=== PATIENT | male | born 2005 | race Two or more races ===

== ENCOUNTER 2023-07-21 14:22 | Emergency (ER) | payer MEDICAID, OTHER ==
[~2023-07-21] VITALS: Ht 182.9 cm; Wt 89.0 kg
[2023-07-21] MEDS ORDERED: IBUPROFEN 800 MG TAB PO ONE (17:30)
[2023-07-21 17:31] VITALS: BP 148/86; PULSE 100; RESP 18; TEMP 98.8; O2SAT 99
[2023-07-21] MEDS ORDERED: ACE3T PO (17:37)
[2023-07-21] MEDS ORDERED: IBUP-1455 PO (17:37)
== END 2023-07-21 17:51 | disposition home or self-care (01) ==
LOC: ER 14:22
DX: S97.82XA Crushing injury of left foot, initial encounter (principal); W23.0XXA Caught, crushed, jammed, or pinched between moving objects, initial encounter; Y93.89 Activity, other specified; Y92.89 Other specified places as the place of occurrence of the external cause; Y99.8 Other external cause status
CPT/HCPCS: 73630

== ENCOUNTER 2025-03-23 21:15 | Inpatient (IN) | payer MEDICAID, OTHER ==
[~2025-03-23] VITALS: Ht 185.4 cm; Wt 104.0 kg
[~2025-03-23 21:15] MED LIST: ACE3T PO; IBUP-1455 PO
[2025-03-23] MEDS ORDERED: MORPHINE SULFATE 4 MG/ML SYR/VIAL IV ONE (21:30)
[2025-03-23] MEDS: SODIUM CHLORIDE 0.9% 1,000 ML IV ONE ×2 (21:30→22:01)
[2025-03-23] MEDS ORDERED: ONDANSETRON HCL 4 MG/2 ML VIAL IV ONE (21:30)
--- NOTE | 2025-03-23 21:32 | ED.PDOC ---
HPI Comments A 20 year-old male presents to the ED with a chief complaint of substernal chest pain with associated SOB as of X1 hour ago. Patient states chest patient is constant, radiating to left arm, with no associated alleviating or persist factors. Patient denies cough, N/V, dizziness, LOC, or migraine at this time. This never happened before. Patient takes testosterone and had an energy drink this morning patient presented with initially what looked like SVT rates between 100-200 Past Medical history: Denies any Past Surgical history: Denies any Medications: Testosterone injections every two weeks Social History: Denies smoking, ETOH, and drug use. Allergies: NKA HPI: Poor Historian. REVIEW OF SYSTEMS: CONSTITUTIONAL: Denies acute: fever, diaphoresis, chills, HEAD: Denies acute: headache, photophobia Eyes: Denies acute: Double vision, vision loss, eye pain, eye discharge. EARS: Denies acute: tinnitus, hearing loss, ear discharge, ear pain, THROAT: Denies acute: sore throat, swelling, difficulty swallowing , pain with swallowing, change in voice. NECK: Denies acute: neck pain, neck swelling, stiff neck. HEART: Denies acute : LUNGS: Denies acute: SOB, wheezing, cough, hemoptysis ABDOMEN: Denies acute: abdominal pain, Nausea, Vomiting, diarrhea, melena , hematemesis, hematochezia SKIN: Denies acute: rash, redness, lesions, itchiness. EXTREMITIES: Denies acute: calf pain, tingling, weakness, denies pain in extremity. Denies acute: Low back pain. Neuro: Denies acute: focal neurological deficit, motor or sensory focal neurological deficit, tremors, seizure like activity, confusion, dizziness, change in mental status, loss of bowel or bladder function, cauda equina like symptoms. : Denies acute: dysuria, hematuria, flank pain, increase in urinary frequency. PSYCH: Denies acute: hallucination, suicidal ideation, homicidal ideation. PHYSICAL EXAM: General: ----[id number]----acute distress, awake and alert. Head: normocephalic, atraumatic. Neck: supple, trachea is midline, no swelling. Throat: Normal phonation. Eyes:, no erythema, no purulent discharge, no proptosis, no icterus. Heart: regular tachycardia, no significant murmur appreciated. Lungs: no apparent respiratory distress, Able to speak in full sentences. No wheezing, no rhonchi, no crackles. No stridors Clear to auscultation bilaterally. Abdomen: non tender to palpation, non distended, soft, no guarding, no rebound, + bowel sounds. Neuro: Awake, Alert, oriented to name, self, situation, follows commands GCS=15. Speech is normal. Skin: no petechia, no purpura, no cyanosis, non-pale, not jaundice. Lower extremities: --no - Pitting edema no deformity, no focal swelling, no calf TTP. Makes eye contact. moves all four extremities. Face: no apparent facial droop. Ambulating in the ED independently. ED COURSE: DISCLAIMER: This medical document was created using an electronic medical record system with voice recognition software and computerized dictation system. Although this document has been carefully reviewed, there might still be some phonetic and typographical errors. Occasional wrong-word or "sound-alike" substitutions may have occurred due to the inherent limitations of voice recognition software. These areas are purely typographical due to imperfections of the software programs and do not reflect any compromise in the patient's medical care. Please read the chart carefully and recognize, using context, where these substitutions have occurred. Chief Complaint: Chest Pain Time Seen by MD: 21:29 Primary Care Provider: BRANDO Crenshaw Notes: Medications, Allergies Allergies: Coded Allergies: NO KNOWN ALLERGIES (Unverified , 03/16/10) Home Meds Active Scripts Ibuprofen Micronized (Ibuprofen) 800 Mg Tab, 800 MG PO Q8HP PRN, #30 TAB Prov:GUSTAVO SIM PAC 07/21/23 Acetaminophen W/ Codeine (Tylenol W/Cod #3) 1 Tab Tb, 1 TAB PO Q8HP PRN, #20 TAB Prov:GUSTAVO SIM PAC 07/21/23 Information Source: Patient Mode of Arrival: Ambulatory Severity: Moderate Timing: Hours Duration: Since onset Location: Substernal Radiation: Arm (L) Associated Signs and Symptoms: SOB, Other (Chest Pain ) Past Medical History PAST MEDICAL HISTORY: Denies Surgical History: Denies all surgeries Family History Family History: Unknown Social History Smoker: Non-Smoker Alcohol: Denies ETOH Use Drugs: Denies Drug Use Lives In: Home EKG EKG : Pulse Rate (adult): 179 Cardiac Rhythm: Afib Was a procedure done? Was a procedure done?: No CP Differential Dx Differential Diagnosis: A-fib, A-Flutter, Anxiety / Panic Attack, Atrial Dysrhythmia, Hyperthyroidism, Hypoxia, MAT, TX, PAC's, PSVT, Pulmonary Embolus, PVC's, Renal Failure, Sinus Tachycardia, Torsades De Pointes, Ventricular Dysrhythmia, V-Fib, V-Tach, WPW Differential Diagnosis: HTN Essential Differential Diagnosis: Chest Wall Pain X-Ray, Labs, Meds, VS Vital Signs Date Time Temp Pulse Resp B/P (MAP) Pulse Ox O2 Delivery O2 Flow Rate FiO2 03/23/25 23:00 97.9 112 20 126/70 (88) 100 97.9 03/23/25 22:16 109 03/23/25 22:00 97.9 118 20 143/79 (100) 100 97.9 03/23/25 21:40 179 03/23/25 21:30 Nasal Cannula* 2 28 03/23/25 21:30 97.9 128 20 155/92 (113) 100 97.9 03/23/25 21:24 98.2 199 28 155/92 (113) 100 98.2 03/23/25 21:17 179 Lab Test 03/23/25 22:42 03/23/25 22:24 03/23/25 21:48 03/23/25 21:24 Range/Units Free Thyroxine (T4) Calculated 1.18 0.89-1.76 ng/dL Troponin I High Sensitivity 9 10 </=54 ng/L Plasma/Serum Blood Alcohol < 3.0 <10 mg/dL Urine Color Colorless Yellow Urine Clarity Clear Clear Urine pH 7.5 5.0-9.0 Urine Specific [place] 1.002 1.001-1.035 Urine Protein Negative Negative Urine Ketones Negative Negative Urine Blood Negative Negative /uL Urine Nitrite Negative Negative Urine Bilirubin Negative Negative Urine Urobilinogen Normal Negative mg/dL Urine Leukocyte Esterase Negative Negative /uL Urine RBC <1 0 - 3 /hpf Urine Microscopic WBC 0-3 /HPF Urine Squamous Epithelial Cells None seen <5 /hpf Urine Bacteria None seen None Seen /hpf Urine Glucose Normal Normal mg/dL Urine Opiates Screen Neg NEGATIVE Urine Fentanyl Screen Neg NEGATIVE Urine Barbiturates Screen Neg NEGATIVE Urine Phencyclidine Screen Neg NEGATIVE Urine Amphetamines Screen Neg NEGATIVE Urine Benzodiazepines Screen Neg NEGATIVE Urine Cocaine Screen Neg NEGATIVE Urine Cannabinoids Screen Neg NEGATIVE White Blood Count 11.8 H 4.4-10.8 10^3/uL Red Blood Count 6.33 H 4.5-5.90 10^6/uL Hemoglobin 18.0 H 13.5-17.5 g/dL Hematocrit 53.8 H 41.0-53.0 % Mean Corpuscular Volume 84.9 80.0-100.0 fL Mean Corpuscular Hemoglobin 28.5 28.0-32.0 pg Mean Corpuscular Hemoglobin Concent 33.5 32.0-36.0 g/dL Red Cell Distribution Width 15.4 H 11.8-14.3 % Platelet Count 298 140-450 10^3/uL Mean Platelet Volume 8.3 6.9-10.8 fL Neutrophils (%) (Auto) 51.5 37.0-80.0 % Lymphocytes (%) (Auto) 32.6 10.0-50.0 % Monocytes (%) (Auto) 10.9 0.0-12.0 % Eosinophils (%) (Auto) 4.3 0.0-7.0 % Basophils (%) (Auto) 0.7 0.0-2.0 % Neutrophils # (Auto) 6.1 1.6-8.6 10 ^3/uL Lymphocytes # (Auto) 3.8 0.4-5.4 10 ^3/uL Monocytes # (Auto) 1.3 0-1.3 10 ^3/uL Eosinophils # (Auto) 0.5 0-0.8 10 ^3/uL Basophils # (Auto) 0.1 0-0.2 10 ^3/uL Nucleated Red Blood Cells 0.2 % Sodium Level 142 136-145 mmol/L Potassium Level 3.5 3.5-5.1 mmol/L Chloride Level 104 98-107 mmol/L Carbon Dioxide Level 25 20-31 mmol/L Anion Gap 13 5-15 Blood Urea Nitrogen 7 L 9-23 mg/dL Creatinine 1.23 0.700-1.30 mg/dL Glomerular Filtration Rate Calc 85 >90 mL/min BUN/Creatinine Ratio 5.7 L 10.0-20.0 Serum Glucose 105 74-106 mg/dL Calcium Level 10.8 H 8.7-10.4 mg/dL Magnesium Level 2.6 1.6-2.6 mg/dL Total Bilirubin 0.6 0.2-1.0 mg/dL Aspartate Amino Transferase (AST) 48 H 13-40 U/L Alanine Aminotransferase (ALT) 87 H 7-40 U/L Alkaline Phosphatase 44 L 46-116 U/L B-Type Natriuretic Peptide < 0 0-100 pg/mL Total Protein 7.9 5.7-8.2 g/dL Albumin 5.4 H 3.2-4.8 g/dL Thyroid Stimulating Hormone (TSH) 3.15 0.55-4.78 uIU/mL Current Medications Medications (Trade) Dose Ordered Sig/Cecile Route Start Time Stop Time Status Last Admin Sodium Chloride 1,000 ml @ 1,000 mls/hr Q1H ONCE IV 03/23/25 21:30 03/23/25 22:29 DC 03/23/25 21:30 Diltiazem HCl (Cardizem Injection) 5 mg ONCE ONCE IV 03/23/25 22:30 03/23/25 22:31 DC 03/23/25 22:48 Sodium Chloride 1,000 ml @ 1,000 mls/hr Q1H ONCE IV 03/23/25 22:30 03/23/25 23:29 DC 03/23/25 22:01 Diltiazem HCl 125 ml @ 5 mls/hr Q24H ONCE IV 03/23/25 23:00 03/24/25 10:59 DC 03/23/25 23:19 Time of 1ST Reevaluation: 22:24 (Heart rate significantly improved. Repeat EKGs shows atrial fibrillation with RVR.) Reevaluation 1ST: Improved Patient Education/Counseling: Diagnosis, Treatment Family Education/Counseling: Other Comments MDM: patient presented with the above HPI.--palpitations----workup was initiated. patient was found with the above mentioned diagnosis. Patient was evaluated immediately in triage. the following medications were ordered: please refer to order lists of meds and tests obtained by myself Dr. Zamudio. Patient ED course and VS have been stabilized. Patient has been reassessed in the ED and remained in a stable condition. Pertinent incidental findings were discussed with the patient and/or family. Patient/family voices understanding and is agreeable with plan. Patient has been observed in the ED adequate length of time to insure improvement/stability. Escalation of care considered: Consideration of escalation to observation or admission Was often maneuver was attempted multiple times. Patient was given 3 L normal saline bolus which improved his vital signs significantly. Patient takes testosterone without any particular need or measurement of the levels. Patient also takes energy drinks. Heart rate improved significantly after fluid hydration however new rhythm EKGs shows atrial fibrillation with RVR. Diltiazem bolus was initiated. Patient was ADMITTED to the medicine team for further evaluation and treatment of their presentation. All the reports of any imaging studies that were ordered by myself were reviewed by myself. SEPSIS Sepsis Screen Date sepsis recognized/suspect: Mar 23, 2025 Time Sepsis recognized/suspect: 2116 Recent Procedure: No On Antibiotic Therapy: No Respiratory Rate >20: Yes Heart Rate >90: Yes Temp<36 C (96.8 F) or >38.3 C: No SBP <90 or MAP <65 mmHG: No New Acute Mental Status Change: No Is the patient on CPAP, BIPAP,: No Physician Orders Greeter (03/23/25 ) Chest Portable (03/23/25 21:23) Electrocardigram (03/23/25 22:23) Aspirin Tablet (03/24/25 10:00) Metoprolol Tartrate Tablet (Lopressor Ta (03/24/25 10:00) Clonidine Hcl Tablet (Catapres Tablet) (03/23/25 22:45) Allergies (03/23/25 22:33) Code Status (03/23/25 22:33) Sodium Chloride Lock (Saline Lock Ns) (03/24/25 06:00) Oxygen Per Hour (03/23/25 22:33) Hydrocodone-Acet 5/325mg Tab ([place] 5/32 (03/23/25 22:45) Ondansetron Hcl (Zofran) (03/23/25 22:45) Docusate Sodium Capsule (Colace Capsule) (03/23/25 22:45) Cardiac Diet-2gna,Lofat,Lochol (03/24/25 Breakfast) Condition: Serious (03/23/25 22:33) Acetaminophen Tablet (Tylenol Tablet) (03/23/25 22:45) Bedrest With Bathroom Privileg (03/23/25 22:33) Sequential Compression Device (03/23/25 ) Nitroglycerin Sublingual (Ntrostat Subli (03/23/25 23:00) Morphine Sulfate Injection (03/23/25 23:00) Stat Ekg For Chest Pain (03/23/25 23:00) Notify Md Of Changes From Base (03/23/25 23:00) Silk Screen Printer For 24 Hours (03/23/25 23:00) Emergency Dysrhythmia Protocol (03/23/25 23:00) Rhythm Strips Once Every Shift (03/23/25 23:00) Oxygen By Nasal Cannula (03/23/25 23:00) Vital Signs Date Time Temp Pulse Resp B/P (MAP) Pulse Ox O2 Delivery O2 Flow Rate FiO2 03/23/25 23:00 97.9 112 20 126/70 (88) 100 97.9 03/23/25 22:16 109 03/23/25 22:00 97.9 118 20 143/79 (100) 100 97.9 03/23/25 21:40 179 03/23/25 21:30 Nasal Cannula* 2 28 03/23/25 21:30 97.9 128 20 155/92 (113) 100 97.9 03/23/25 21:24 98.2 199 28 155/92 (113) 100 98.2 03/23/25 21:17 179 Laboratory Tests Test 03/23/25 21:24 White Blood Count 11.8 10^3/uL (4.4-10.8) H Departure 1 Departure Time of Disposition: 22:13 Impression: Primary Impression: Atrial fibrillation with RVR Additional Impression: Dehydration Disposition: 09 ADMITTED INPATIENT Admit to: Tele Condition: Guarded Discharged With: Self Critical Care Note Critical Care Time?: Yes (1 hr-critical care time only) Heart Score Heart Score: Heart Score Response (Comments) Value History Moderate Suspicious [address]-Deviation 2 Age <45 0 Risk Factors No known risk factors 0 Troponin Normal limit 0 Total 3 I personally scribed for DOMI ZAMUDIO DO ([email or web address]) on 03/23/25 at 21:32. Electronically submitted by Asia Bobby ([facility]). I personally scribed for DOMI ZAMUDIO DO ([facility] on 03/23/25 at 21:35. Electronically submitted by Asia Bobby ([employer]). I personally scribed for DOMI ZAMUDIO DO ([facility] on 03/23/25 at 21:37. Electronically submitted by Asia Bobby ([employer]). I personally scribed for DOMI ZAMUDIO DO ([facility] on 03/23/25 at 21:40. Electronically submitted by Asia Bobby ([employer]). I personally scribed for DOMI ZAMUDIO DO ([facility] on 03/23/25 at 21:51. Electronically submitted by Asia Bobby ([employer]). DOMI ZAMUDIO DO Mar 23, 2025 21:32
[2025-03-23 21:42] LABS: Hematocrit 53.8 % (41.0-53.0); Hemoglobin 18.0 g/dL (13.5-17.5); Mean Corpuscular Hemoglobin 28.5 pg (28.0-32.0); Mean Corpuscular Volume 84.9 fL (80.0-100.0); Nucleated Red Blood Cells % 0.2 %
[2025-03-23 21:49] LABS: Anion Gap 13 (5-15); BUN/Creatinine Ratio 5.7 (10.0-20.0); Bilirubin, Total 0.6 mg/dL (0.2-1.0); Carbon Dioxide 25 mmol/L (20-31); Chloride 104 mmol/L (98-107); Glucose 105 mg/dL (74-106); Magnesium 2.6 mg/dL (1.6-2.6); Potassium 3.5 mmol/L (3.5-5.1); Sodium 142 mmol/L (136-145); Total Protein 7.9 g/dL (5.7-8.2)
--- NOTE | 2025-03-23 22:04 | DVH ---
CHEST RADIOGRAPH Indication: tachy Technique: Single frontal view of the chest was obtained COMPARISON: None FINDINGS: Lines and Tubes: None Lungs: Clear Pleura: No effusion. No pneumothorax. Cardiomediastinal contours: Unremarkable IMPRESSION: No abnormality demonstrated.
[2025-03-23 22:13] LABS: Alanine Aminotransferase 87 U/L (7-40); Albumin 5.4 g/dL (3.2-4.8); Alkaline Phosphatase 44 U/L (46-116); Blood Urea Nitrogen 7 mg/dL (9-23); Calcium 10.8 mg/dL (8.7-10.4)
[2025-03-23] MEDS ORDERED: HYDROcodone-ACET 5/325MG TAB PO PRN (22:45)
[2025-03-23] MEDS ORDERED: ACETAMINOPHEN 325 MG TAB PO PRN (22:45)
[2025-03-23] MEDS ORDERED: DOCUSATE SOD 100 MG CAP PO PRN (22:45)
[2025-03-23] MEDS ORDERED: ONDANSETRON HCL 4 MG/2 ML VIAL IV PRN (22:45)
[2025-03-23] MEDS: dilTIAZem 25 MG/5 ML VIAL IV ONE (22:48)
[2025-03-23] MEDS ORDERED: MORPHINE SULFATE INJ 2 MG/ml SYRG IV PRN (23:00)
[2025-03-23] MEDS ORDERED: NITROGLYCERIN 0.4 MG SL TAB SL PRN (23:00)
--- NOTE | 2025-03-23 23:06 | DVHHP2 ---
History of Present Illness Reason for Visit: Atrial fibrillation with RVR History of Present Illness The patient is a 20-year-old male who denies past medical history presented to [facility] ED with complaint of chest pain associated with shortness of breaths. Patient reports he has been experiencing substernal chest pain, radiating to his left arm, constant, rating 7/10 numeric scale, palpitations, getting worse that prompted this visit. Patient states he is on testosterone injection every two weeks. Patient was seen and evaluated in the ED with AFib with RVR heart rate in the 180s, temperature 97.9 F, O2 saturation 99% on oxygen, blood pressure 155/92. Laboratory data shows WBC 11.8, hemoglobin 18.0, hematocrit 53.8, platelets 298, sodium 142, potassium 3.5, BUN 7, creatinine 1.23, glucose 105, calcium 10.8, albumin 5.4, troponin 10, TSH 3.15, AST 48, ALT 87. Chest x-ray show no abnormality demonstrated. Patient was started on Cardizem drip, morphine sulfate 4 mg IV x1, please see medication orders section in the computer. On my assessment, patient denied chest pain at this moment, no headache, no dizziness, no diaphoresis, currently on oxygen, no nausea, no vomiting, no fever, no chills. Patient was admitted for further evaluation and medical management. Past Medical History Denies past medical history Past Surgical History Denies all surgeries Family History Patient reports father in this hospital at the age of 56 from heart attack, mother suffer from heart attack. Past Social History The patient lives at home, denies smoking, alcohol or illicit drugs abuse. Review of Systems Constitutional: No: Fever, Chills, Sweats, Weakness, Malaise, Other Eyes: No: Pain, Vision change, Conjunctivae inflammation, Eyelid inflammation, Other, Redness ENT: No: Ear pain, Ear discharge, Nose pain, Nose discharge, Nose congestion, Mouth pain, Mouth swelling, Throat pain, Throat swelling, Other Respiratory: Shortness of breath, Other (SOB at rest); No: Cough, Dry, SOB with excertion, Wheezing, Hemoptysis, Pleuritic Pain, Sputum, Wheezing Cardiovascular: Chest Pain, Palpitations; No: Orthopnea, Paroxysmal Noc. Dyspnea, Edema, Lt Headedness, Other Gastrointestinal: No: Nausea, Vomiting, Abdominal Pain, Diarrhea, Constipation, Melena, Hematochezia, Other Genitourinary: No Dysuria, No Frequency, No Incontinence, No Hematuria, No Retention, No Other Musculoskeletal: No: other, neck pain, shoulder pain, arm pain, back pain, hand pain, leg pain, foot pain Skin: No: Rash, Lesions, Jaundice, Bruising, Other Neurological: No: Weakness, Numbness, Incoordination, Change in speech, Confusion, Seizures, Other Allergies: Coded Allergies: NO KNOWN ALLERGIES (Unverified , 03/16/10) Medications Current Medications Medications Dose Ordered Sig/Cecile Route Start Time Stop Time Status Last Admin Dose Admin Aspirin 81 mg DAILY PO 03/24/25 10:00 Metoprolol Tartrate 25 mg BID PO 03/24/25 10:00 Clonidine HCl 0.1 mg Q4HP PRN PO 03/23/25 22:45 Sodium Chloride 10 ml Q8HR IV 03/24/25 06:00 Acetaminophen/ Hydrocodone Bitart 1 tab Q4HP PRN PO 03/23/25 22:45 Ondansetron HCl 4 mg Q4HP PRN IV 03/23/25 22:45 Docusate Sodium 100 mg BIDPRN PRN PO 03/23/25 22:45 Acetaminophen 650 mg Q6HP PRN PO 03/23/25 22:45 Nitroglycerin 0.4 mg Q5MINP PRN SL 03/23/25 23:00 Morphine Sulfate 2 mg Q30M PRN IV 03/23/25 23:00 UNV Exam Vital Signs Vital Signs Date Time Temp Pulse Resp B/P (MAP) Pulse Ox O2 Delivery O2 Flow Rate FiO2 03/23/25 22:16 109 03/23/25 21:30 97.9 20 155/92 (113) 100 97.9 General Appearance: Alert, Oriented X3, Cooperative, No acute distress HEENT: Atraumatic, PERRLA, EOMI, Mucous membr. moist/pink Respiratory: Clear to auscultation, Normal air movement Cardiovascular: Normal S1, Normal S2, No murmurs, Other (Irregular rate) Abdominal: Normal bowel sounds, Soft, No tenderness, No hepatospenomegaly, No masses Extremities: No clubbing, No cyanosis, No edema, Normal pulses, No tenderness/swelling Skin: No rashes, No breakdown, No significant lesion Neuro: Normal gait, Normal speech, Strength at 5/5 X4 ext, Normal tone, Sensation intact, Cranial nerves 3-12 NL, Reflexes 2+ Psych/Mental Status: Mental status NL, Mood NL Labs/Xrays Labs Test 03/23/25 22:42 03/23/25 22:24 03/23/25 21:24 Range/Units Troponin I High Sensitivity 9 </=54 ng/L Plasma/Serum Blood Alcohol < 3.0 <10 mg/dL White Blood Count 11.8 H 4.4-10.8 10^3/uL Red Blood Count 6.33 H 4.5-5.90 10^6/uL Hemoglobin 18.0 H 13.5-17.5 g/dL Hematocrit 53.8 H 41.0-53.0 % Mean Corpuscular Volume 84.9 80.0-100.0 fL Mean Corpuscular Hemoglobin 28.5 28.0-32.0 pg Mean Corpuscular Hemoglobin Concent 33.5 32.0-36.0 g/dL Red Cell Distribution Width 15.4 H 11.8-14.3 % Platelet Count 298 140-450 10^3/uL Mean Platelet Volume 8.3 6.9-10.8 fL Neutrophils (%) (Auto) 51.5 37.0-80.0 % Lymphocytes (%) (Auto) 32.6 10.0-50.0 % Monocytes (%) (Auto) 10.9 0.0-12.0 % Eosinophils (%) (Auto) 4.3 0.0-7.0 % Basophils (%) (Auto) 0.7 0.0-2.0 % Neutrophils # (Auto) 6.1 1.6-8.6 10 ^3/uL Lymphocytes # (Auto) 3.8 0.4-5.4 10 ^3/uL Monocytes # (Auto) 1.3 0-1.3 10 ^3/uL Eosinophils # (Auto) 0.5 0-0.8 10 ^3/uL Basophils # (Auto) 0.1 0-0.2 10 ^3/uL Nucleated Red Blood Cells 0.2 % Sodium Level 142 136-145 mmol/L Potassium Level 3.5 3.5-5.1 mmol/L Chloride Level 104 98-107 mmol/L Carbon Dioxide Level 25 20-31 mmol/L Anion Gap 13 5-15 Blood Urea Nitrogen 7 L 9-23 mg/dL Creatinine 1.23 0.700-1.30 mg/dL Glomerular Filtration Rate Calc 85 >90 mL/min BUN/Creatinine Ratio 5.7 L 10.0-20.0 Serum Glucose 105 74-106 mg/dL Calcium Level 10.8 H 8.7-10.4 mg/dL Magnesium Level 2.6 1.6-2.6 mg/dL Total Bilirubin 0.6 0.2-1.0 mg/dL Aspartate Amino Transferase (AST) 48 H 13-40 U/L Alanine Aminotransferase (ALT) 87 H 7-40 U/L Alkaline Phosphatase 44 L 46-116 U/L Total Protein 7.9 5.7-8.2 g/dL Albumin 5.4 H 3.2-4.8 g/dL Thyroid Stimulating Hormone (TSH) 3.15 0.55-4.78 uIU/mL PATIENT: ANSELMO PAREDES ACCT: [id number] UNIT: [id number] : 2005 LOC: ER ROOM / BED: / AGE / SEX: 20 / M ADM STATUS: REG ER SERVICE 22 ORDERING PHYSICIAN: DOMI ZAMUDIO DO PROCEDURE(s): CXRP - CHEST PORTABLE REASON: tachy ORDER NUMBER(s): [id number], ACCESSION NUMBER(s): [id number] CHEST RADIOGRAPH Indication: tachy Technique: Single frontal view of the chest was obtained COMPARISON: None FINDINGS: Lines and Tubes: None Lungs: Clear Pleura: No effusion. No pneumothorax. Cardiomediastinal contours: Unremarkable IMPRESSION: No abnormality demonstrated. SEPSIS Sepsis Screen Date sepsis recognized/suspect: Mar 23, 2025 Time Sepsis recognized/suspect: 2116 Recent Procedure: No On Antibiotic Therapy: No Respiratory Rate >20: Yes Heart Rate >90: Yes Temp<36 C (96.8 F) or >38.3 C: No SBP <90 or MAP <65 mmHG: No New Acute Mental Status Change: No Is the patient on CPAP, BIPAP,: No Physician Orders Urinalysis (03/23/25 21:19) Community Director (03/23/25 ) Urinalysis (03/23/25 21:23) Drug Screen (03/23/25 21:23) Chest Portable (03/23/25 21:23) Electrocardigram (03/23/25 21:23) Troponin-I Hs (03/24/25 00:23) Electrocardigram (03/23/25 22:23) Electrocardigram (03/24/25 00:23) B-Type Natriuretic Peptide (03/23/25 22:20) Sodium Chloride 0.9% (03/23/25 22:30) Aspirin Tablet (03/24/25 10:00) Metoprolol Tartrate Tablet (Lopressor Ta (03/24/25 10:00) Clonidine Hcl Tablet (Catapres Tablet) (03/23/25 22:45) Free T4 (Free Thyroxine) (03/23/25:33) Allergies (03/23/25:33) Code Status (03/23/25:33) Sodium Chloride Lock (Saline Lock Ns) (03/24/25 06:00) Oxygen Per Hour (03/23/25 22:33) Hydrocodone-Acet 5/325mg Tab ([place] 5/32 (03/23/25 22:45) Ondansetron Hcl (Zofran) (03/23/25 22:45) Docusate Sodium Capsule (Colace Capsule) (03/23/25 22:45) Complete Blood Count (03/24/25 04:00) Comprehensive Metabolic Panel (03/24/25 04:00) Cardiac Diet-2gna,Lofat,Lochol (03/24/25 Breakfast) Condition: Serious (03/23/25 22:33) Acetaminophen Tablet (Tylenol Tablet) (03/23/25 22:45) Bedrest With Bathroom Privileg (03/23/25 22:33) Sequential Compression Device (03/23/25 ) Diltiazem 125mg/125ml Bag Kit (Cardizem) (03/23/25 23:00) Nitroglycerin Sublingual (Ntrostat Subli (03/23/25 23:00) Morphine Sulfate Injection (03/23/25 23:00) Stat Ekg For Chest Pain (03/23/25 23:00) Notify Md Of Changes From Base (03/23/25 23:00) Sleeve Presser Operator For 24 Hours (03/23/25 23:00) Emergency Dysrhythmia Protocol (03/23/25 23:00) Rhythm Strips Once Every Shift (03/23/25 23:00) Oxygen By Nasal Cannula (03/23/25 23:00) * Cardiology Consult (03/23/25 23:05) Admit (03/23/25 23:05) Vital Signs Date Time Temp Pulse Resp B/P (MAP) Pulse Ox O2 Delivery O2 Flow Rate FiO2 03/23/25 22:16 109 03/23/25 21:40 179 03/23/25 21:30 97.9 128 20 155/92 (113) 100 97.9 03/23/25 21:24 98.2 199 28 155/92 (113) 100 98.2 03/23/25 21:17 179 Laboratory Tests Test 03/23/25 21:24 White Blood Count 11.8 10^3/uL (4.4-10.8) H Medications Medications Dose Ordered Sig/Cecile Route Start Time Stop Time Status Last Admin Dose Admin Diltiazem HCl 5 mg ONCE ONCE IV 03/23/25 22:30 03/23/25 22:31 DC 03/23/25 22:48 5 MG Sodium Chloride 1,000 ml @ 1,000 mls/hr Q1H ONCE IV 03/23/25 21:30 03/23/25 22:29 DC 03/23/25 21:30 1,000 MLS/HR Sodium Chloride 1,000 ml @ 1,000 mls/hr Q1H ONCE IV 03/23/25 22:30 03/23/25 23:29 03/23/25 22:01 1,000 MLS/HR Assessment/Plan Assessment/Plan Atrial fibrillation with RVR Acute chest pain Elevated liver enzymes Elevated TSH Leukocytosis, unspecified Plan 1. Admit to telemetry unit 2. Breathing treatment 3. Pain control management 4. IV antibiotic management 5. Management of fluids and electrolytes 6. Consultation for Cardiology 7. Diagnostic test chest x-ray 8. DVT prophylaxis-on aspirin 9. Repeat labs CBC, CMP in a.m. 10. Continue with current medical management 11. Treatment plan discussed with patient/brother and RN. Patient/brother verbalized understanding. Plan discussed with: Patient (/brother), Other (RN) My Orders Orders - MATTHIAS HENNING DNP Procedure Category Date Status Time Aspirin Tablet PHA 03/24/25 In Process 10:00 Metoprolol Tartrate PHA 03/24/25 In Process Tablet (Lopressor Ta 10:00 Clonidine Hcl Tablet PHA 03/23/25 In Process (Catapres Tablet) 22:45 Free T4 (Free LAB 03/23/25 In Process Thyroxine) 22:33 Allergies JESSICA 03/23/25 In Process 22:33 Code Status CODE 03/23/25 Transmitted 22:33 Sodium Chloride Lock PHA 03/24/25 In Process (Saline Lock Ns) 06:00 Oxygen Per Hour RT 03/23/25 Transmitted 22:33 Hydrocodone-Acet PHA 03/23/25 In Process 5/325mg Tab ([place] 22:45 Ondansetron Hcl PHA 03/23/25 In Process (Zofran) 22:45 Docusate Sodium PHA 03/23/25 In Process Capsule (Colace 22:45 Complete Blood Count LAB 03/24/25 Verified 04:00 Comprehensive LAB 03/24/25 Verified Metabolic Panel 04:00 Cardiac DIET 03/24/25 Transmitted Diet-2gna,Lofat,Lochol Breakfast Condition: Serious JESSICA 03/23/25 In Process 22:33 Acetaminophen Tablet PHA 03/23/25 In Process (Tylenol Tablet) 22:45 Bedrest With Bathroom JESSICA 03/23/25 In Process Privileg 22:33 Sequential JESSICA 03/23/25 In Process Compression Device Diltiazem 125mg/125ml PHA 03/23/25 In Process Bag Kit (Cardizem) 23:00 Nitroglycerin PHA 03/23/25 In Process Sublingual (Ntrostat 23:00 Morphine Sulfate PHA 03/23/25 Logged Injection 23:00 Stat Ekg For Chest JESSICA 03/23/25 In Process Pain 23:00 Notify Of Changes JESSICA 03/23/25 In Process From Base 23:00 Sleeve Presser Operator For [facility] 03/23/25 In Process 24 Hours 23:00 Emergency Dysrhythmia JESSICA 03/23/25 In Process Protocol 23:00 Rhythm Strips Once [facility] 03/23/25 In Process Every Shift 23:00 Oxygen By Nasal RT 03/23/25 Transmitted Cannula 23:00 * Cardiology Consult CONS 03/23/25 Verified 23:05 Admit ADMIT 03/23/25 Verified 23:05 Problem List: (1) Atrial fibrillation with RVR (2) Acute chest pain (3) Elevated liver enzymes (4) Elevated TSH (5) Leukocytosis, unspecified Date of Service: Mar 23, 2025 Billing Provider: MATTHIAS HENNING DNP Common Visit Codes: [id number] INP/OBS CARE (HIGH) MATTHIAS HENNING DNP Mar 23, 2025 23:06
[2025-03-23] MEDS: METOPROLOL TARTRATE 1MG/1ML-5ML VIAL IV ONE (23:10)
[2025-03-24 00:10] LABS: Urine Protein, UAD Negative (Negative)
[2025-03-24 00:23] LABS: Amphetamine Screen, Urine Neg (NEGATIVE); Barbiturate Scree,Urine Neg (NEGATIVE); Benzodiazephine Screen, Urine Neg (NEGATIVE); Cocaine Screen, Urine Neg (NEGATIVE); Opiate Scree,Urine Neg (NEGATIVE); Phencyclidine Screen, Urine Neg (NEGATIVE)
[2025-03-24 00:24] LABS: Cannabinoid Screen, Urine Neg (NEGATIVE)
--- NOTE | 2025-03-24 01:51 | ECG ---
[facility] Test Date: 2025-03-24 Test Time: 00:16:48 Pat Name: ANSELMO PAREDES Department: ED Room: 0223T Gender: M Embedder: gulshan : 2005 Requested By: DOMI ZAMUDIO Order Number: [id number] Reading MD: Chavez Dickinson Measurements Intervals [place] Rate: 122 P: 0 OK: 0 QRS: 99 QRSD: 90 T: -6 QT: 292 QTc: 416 Interpretive Statements Atrial fibrillation Lateral infarct, acute Electronically Signed On 03-28-2025 17:46:04 PDT by Chavez Dickinson Please click the below link to view image of tracing.
--- NOTE | 2025-03-24 01:51 | ECG ---
[facility] Test Date: 2025-03-23 Test Time: 22:16:36 Pat Name: ANSELMO PAREDES Department: ED Room: 0223T Gender: M Graphic Design Teacher: gulshan : 2005 Requested By: DOMI ZAMUDIO Order Number: [id number] Reading MD: Chavez Dickinson Measurements Intervals [place] Rate: 109 P: 0 VT: 0 QRS: 97 QRSD: 94 T: -10 QT: 312 QTc: 421 Interpretive Statements Atrial fibrillation Ventricular premature complex Borderline right axis deviation Nonspecific T abnormalities, inferior leads ST elevation, consider lateral injury Electronically Signed On 03-28-2025 17:45:58 PDT by Chavez Dickinson Please click the below link to view image of tracing.
[2025-03-24 04:23] LABS: Hematocrit 49.0 % (41.0-53.0); Hemoglobin 16.5 g/dL (13.5-17.5); Mean Corpuscular Hemoglobin 28.8 pg (28.0-32.0); Mean Corpuscular Volume 85.7 fL (80.0-100.0); Nucleated Red Blood Cells % 0.1 %
[2025-03-24 04:38] LABS: Albumin 4.6 g/dL (3.2-4.8); Anion Gap 6 (5-15); BUN/Creatinine Ratio 4.6 (10.0-20.0); Bilirubin, Total 0.8 mg/dL (0.2-1.0); Calcium 9.6 mg/dL (8.7-10.4); Carbon Dioxide 28 mmol/L (20-31); Glucose 90 mg/dL (74-106); Sodium 142 mmol/L (136-145); Total Protein 6.6 g/dL (5.7-8.2)
[2025-03-24 04:41] LABS: Alanine Aminotransferase 70 U/L (7-40); Alkaline Phosphatase 31 U/L (46-116); Blood Urea Nitrogen 5 mg/dL (9-23); Chloride 108 mmol/L (98-107); Potassium 5.5 mmol/L (3.5-5.1)
[2025-03-24] MEDS: SODIUM CHLOR 0.9% PF (SALINE LOCK) 10ML VIAL/SYR IV SCH (06:16)
[2025-03-24 07:35] VITALS: PULSE 87; RESP 20; O2SAT 98
[2025-03-24] MEDS: SODIUM ZIRCONIUM CYCL 10 GM PAK PO ONE (08:51)
[2025-03-24] MEDS: METOPROLOL TARTRATE 25 MG TAB PO SCH (09:58)
[2025-03-24] MEDS: ENOXAPARIN SOD 100 MG/1 ML SYRINGE SC SCH (10:32)
[2025-03-24 11:13] LABS: Triglycerides 100 mg/dL (< 150)
--- NOTE | 2025-03-24 11:13 | DVHINCON2 ---
Date Seen: Mar 24, 2025 Referring Physician SURY Gonzalez Reason for Consultation AFib with RVR History of Present Illness 20-year-old male with no significant past medical history presents to the emergency department with a chief complaint of shortness of breath. The patient reports that yesterday while lying down, he experienced sudden onset palpitations lasting approximately 1 hour, which prompted him to seek emergency care. He endorses a similar episode about a month ago, which resolved spontaneously within a few minutes. Upon further questioning, the patient admits to self administering testosterone injection obtained from a store receiver over the past three months for gym-related purposes. In the emergency department, the patient was found to be in atrial fibrillation with rapid ventricular response at a rate in the 180s. He was started on Cardizem drip, which successfully controlled his heart rate. On assessment, he remains in atrial fibrillation with a controlled ventricular rate in the 80s Past Medical History Denies Past Surgical History Denies Family History Reviewed, non-contributory to the management of this case. Social History The patient lives at home, denies smoking, alcohol or illicit drugs abuse. Allergies: Coded Allergies: NO KNOWN ALLERGIES (Unverified , 03/16/10) Home Meds Active Scripts Ibuprofen Micronized (Ibuprofen) 800 Mg Tab, 800 MG PO Q8HP PRN, #30 TAB Prov:GUSTAVO SIM PAC 07/21/23 Acetaminophen W/ Codeine (Tylenol W/Cod #3) 1 Tab Tb, 1 TAB PO Q8HP PRN, #20 TAB Prov:GUSTAVO SIM PAC 07/21/23 Current Medications Current Medications Medications (Trade) Dose Ordered Sig/Cecile Route PRN Reason Start Time Stop Time Status Last Admin Aspirin 81 mg DAILY PO 03/24/25 10:00 03/24/25 09:57 Metoprolol Tartrate (Lopressor Tablet) 25 mg BID PO 03/24/25 10:00 03/24/25 09:58 Clonidine HCl (Catapres Tablet) 0.1 mg Q4HP PRN PO SBP>150 03/23/25 22:45 Sodium Chloride (Saline Lock Ns) 10 ml Q8HR IV 03/24/25 06:00 03/24/25 06:16 Acetaminophen/ Hydrocodone Bitart ([place] 5/325MG Tab) 1 tab Q4HP PRN PO MODERATE PAIN (4-6 PAIN SCALE) 03/23/25 22:45 Ondansetron HCl (Zofran) 4 mg Q4HP PRN IV NAUSEA / VOMITING 03/23/25 22:45 Docusate Sodium (Colace Capsule) 100 mg BIDPRN PRN PO FOR CONSTIPATION 03/23/25 22:45 Acetaminophen (Tylenol Tablet) 650 mg Q6HP PRN PO PAIN SCALE 1-3 OR TEMP>100.4 03/23/25 22:45 Nitroglycerin (Ntrostat Sublingual) 0.4 mg Q5MINP PRN SL FOR CHEST PAIN 03/23/25 23:00 Morphine Sulfate 2 mg Q30M PRN IV FOR CHEST PAIN 03/23/25 23:00 Enoxaparin Sodium (Lovenox) 100 mg Q12HR SC 03/24/25 10:00 03/24/25 10:32 Review of Systems Constitutional: No symptom reported Ears, Nose, & Throat: No symptom reported Eyes: No symptom reported Neurological: No symptoms reported Pulmonary/Respiratory: No symptom reported Cardiovascular: Positive for palpitations and shortness of breath. Denies chest pain or syncope Gastrointestinal: No symptom reported Genitourinary: No symptom reported Musculoskeletal: No symptom reported Skin: No symptom reported Psychiatric: No symptom reported Endocrine: No symptom reported Hematologic/Lymphatic: No symptom reported Vital Signs Vital Signs Date Time Temp Pulse Resp B/P (MAP) Pulse Ox O2 Delivery O2 Flow Rate FiO2 03/24/25 10:41 87 137/75 03/24/25 09:45 18 99 03/24/25 07:35 Nasal Cannula* 1 24 03/24/25 07:30 97.1 97.1 Physical Exam INITIAL VITAL SIGNS: Reviewed by me GENERAL: Alert and interactive. No acute distress. HEAD: Head is normocephalic and atraumatic. EYES: EOMI, PERRL. No scleral icterus. No conjunctival injection. ENT: Moist mucous membranes. NECK: Supple, No masses, Full range of motion. RESPIRATORY: No tachypnea. Clear breath sounds bilaterally. No wheezing, rales, rhonchi. CV: Irregularly irregular rhythm, no murmurs, rubs or gallops. Rate controlled on re-evaluation GI/: Active bowel sounds, soft, nondistended, nontender. No guarding. No rebound. No masses. No CVA tenderness. INTEGUMENTARY: Warm and dry. No obvious rashes. NEUROLOGIC: Alert and oriented. Face is symmetric. Speech is normal. Moves all extremities equally. Labs/Diagnostic Data Labs Test 03/24/25 03:20 03/24/25 00:11 03/23/25 22:42 03/23/25 22:24 Range/Units White Blood Count 13.8 H 4.4-10.8 10^3/uL Red Blood Count 5.72 4.5-5.90 10^6/uL Hemoglobin 16.5 13.5-17.5 g/dL Hematocrit 49.0 41.0-53.0 % Mean Corpuscular Volume 85.7 80.0-100.0 fL Mean Corpuscular Hemoglobin 28.8 28.0-32.0 pg Mean Corpuscular Hemoglobin Concent 33.6 32.0-36.0 g/dL Red Cell Distribution Width 15.2 H 11.8-14.3 % Platelet Count 259 140-450 10^3/uL Mean Platelet Volume 8.3 6.9-10.8 fL Neutrophils (%) (Auto) 67.3 37.0-80.0 % Lymphocytes (%) (Auto) 21.3 10.0-50.0 % Monocytes (%) (Auto) 8.5 0.0-12.0 % Eosinophils (%) (Auto) 2.6 0.0-7.0 % Basophils (%) (Auto) 0.3 0.0-2.0 % Neutrophils # (Auto) 9.3 H 1.6-8.6 10 ^3/uL Lymphocytes # (Auto) 2.9 0.4-5.4 10 ^3/uL Monocytes # (Auto) 1.2 0-1.3 10 ^3/uL Eosinophils # (Auto) 0.4 0-0.8 10 ^3/uL Basophils # (Auto) 0 0-0.2 10 ^3/uL Nucleated Red Blood Cells 0.1 % Sodium Level 142 136-145 mmol/L Potassium Level 5.5 #H 3.5-5.1 mmol/L Chloride Level 108 H 98-107 mmol/L Carbon Dioxide Level 28 20-31 mmol/L Anion Gap 6 5-15 Blood Urea Nitrogen 5 L 9-23 mg/dL Creatinine 1.08 0.700-1.30 mg/dL Glomerular Filtration Rate Calc 100 >90 mL/min BUN/Creatinine Ratio 4.6 L 10.0-20.0 Serum Glucose 90 74-106 mg/dL Calcium Level 9.6 8.7-10.4 mg/dL Total Bilirubin 0.8 0.2-1.0 mg/dL Aspartate Amino Transferase (AST) 35 13-40 U/L Alanine Aminotransferase (ALT) 70 H 7-40 U/L Alkaline Phosphatase 31 L 46-116 U/L Total Protein 6.6 5.7-8.2 g/dL Albumin 4.6 3.2-4.8 g/dL Troponin I High Sensitivity 11 </=54 ng/L Free Thyroxine (T4) Calculated 1.18 0.89-1.76 ng/dL Plasma/Serum Blood Alcohol < 3.0 <10 mg/dL Test 03/23/25 21:48 03/23/25 21:24 Range/Units Urine Color Colorless Yellow Urine Clarity Clear Clear Urine pH 7.5 5.0-9.0 Urine Specific [place] 1.002 1.001-1.035 Urine Protein Negative Negative Urine Ketones Negative Negative Urine Blood Negative Negative /uL Urine Nitrite Negative Negative Urine Bilirubin Negative Negative Urine Urobilinogen Normal Negative mg/dL Urine Leukocyte Esterase Negative Negative /uL Urine RBC <1 0 - 3 /hpf Urine Microscopic WBC 0-3 /HPF Urine Squamous Epithelial Cells None seen <5 /hpf Urine Bacteria None seen None Seen /hpf Urine Glucose Normal Normal mg/dL Urine Opiates Screen Neg NEGATIVE Urine Fentanyl Screen Neg NEGATIVE Urine Barbiturates Screen Neg NEGATIVE Urine Phencyclidine Screen Neg NEGATIVE Urine Amphetamines Screen Neg NEGATIVE Urine Benzodiazepines Screen Neg NEGATIVE Urine Cocaine Screen Neg NEGATIVE Urine Cannabinoids Screen Neg NEGATIVE Magnesium Level 2.6 1.6-2.6 mg/dL B-Type Natriuretic Peptide < 0 0-100 pg/mL Thyroid Stimulating Hormone (TSH) 3.15 0.55-4.78 uIU/mL PROCEDURE(s): CXRP - CHEST PORTABLE REASON: tachy ORDER NUMBER(s): [id number], ACCESSION NUMBER(s): [id number] CHEST RADIOGRAPH Indication: tachy Technique: Single frontal view of the chest was obtained COMPARISON: None FINDINGS: Lines and Tubes: None Lungs: Clear Pleura: No effusion. No pneumothorax. Cardiomediastinal contours: Unremarkable IMPRESSION: No abnormality demonstrated. Assessment * New onset atrial fibrillation with rapid ventricular response, now rate controlled with diltiazem. Likely secondary to exogenous anabolic steroids testosterone use which has been associated with arrhythmogenic effects including atrial fibrillation. * Hyperkalemia, resolved * Dyslipidemia, mild * Obesity * Rule out pericarditis Plan/Recommendation We will continue with the following plan/recommendations ( ): New onset Atrial fibrillation with RVR, now rate is controlled Rule out pericarditis * Chads Vasc score 0-- Lovenox prophylaxis * Continue with beta wilma * Monitor rhythm rate on telemetry * Echocardiogram to assess for structural heart disease or atrial and enlargement * Monitor electrolytes and replete as needed * ESR, CRP * Close cardiac surveillance Possible Substance induced arrhythmia * Counseled patient on discontinuing testosterone injections * Educate on cardiovascular risk associated with anabolic steroid use Obesity * Lifestyle modification counseled with diet, regular exercise, and weight loss Plan discussed with: Patient NYHA Physical activity limitations: NA Date of Service: Mar 24, 2025 Billing Provider: JOSEPH JONAS Sr., MD Cardiology Common Codes: [id number] INP/OBS CARE (High), CONSULT ONLY Cardiology Consultation Codes: [id number] CONSULT <45MIN NIVIA MANRIQUE ELECTRICIAN MASTER Mar 24, 2025 11:13
[2025-03-24 11:15] LABS: Cholesterol 151 mg/dL (< 200)
[2025-03-24 11:19] LABS: HDL Cholesterol 22 mg/dL (40-59)
--- NOTE | 2025-03-24 13:47 | DVHPN2 ---
Subjective FEELS BETTER. NO CHEST PAIN NO PALPITATION. Reviewed: Care Plan, H&P, Labs, Medications, Previous Orders, Radiology, Other Changes from previous H/P or p: No Changes General: Per HPI Objective Vitals Vital Signs Date Time Temp Pulse Resp B/P (MAP) Pulse Ox O2 Delivery O2 Flow Rate FiO2 03/24/25 13:00 74 15 123/66 (85) 95 03/24/25 07:35 Nasal Cannula* 1 24 03/24/25 07:30 97.1 97.1 Intake/Output Intake and Output 03/24/25 07:00 Intake Total 2000 ml Balance 2000 ml Intake IV Total 2000 ml General Appearance: Alert, Oriented X3, Cooperative, No acute distress HEENT: Atraumatic Lungs: Clear to auscultation Cardiovascular: Regular rate Abdomen: Normal bowel sounds, Soft, No tenderness Extremities: No edema Medications Current Medications Medications Dose Ordered Sig/Cecile Route Start Time Stop Time Status Last Admin Dose Admin Aspirin 81 mg DAILY PO 03/24/25 10:00 03/24/25 09:57 81 MG Metoprolol Tartrate 25 mg BID PO 03/24/25 10:00 03/24/25 09:58 25 MG Clonidine HCl 0.1 mg Q4HP PRN PO 03/23/25 22:45 Sodium Chloride 10 ml Q8HR IV 03/24/25 06:00 03/24/25 06:16 10 ML Acetaminophen/ Hydrocodone Bitart 1 tab Q4HP PRN PO 03/23/25 22:45 Ondansetron HCl 4 mg Q4HP PRN IV 03/23/25 22:45 Docusate Sodium 100 mg BIDPRN PRN PO 03/23/25 22:45 Acetaminophen 650 mg Q6HP PRN PO 03/23/25 22:45 Nitroglycerin 0.4 mg Q5MINP PRN SL 03/23/25 23:00 Morphine Sulfate 2 mg Q30M PRN IV 03/23/25 23:00 Enoxaparin Sodium 100 mg Q12HR SC 03/24/25 10:00 03/24/25 10:32 100 MG Diltiazem HCl 120 mg DAILY PO 03/25/25 14:00 Laboratory Results Laboratory Tests 03/24/25 03:20 03/24/25 11:01 Chemistry Test 03/23/25 21:24 03/24/25 03:20 Albumin 5.4 g/dL (3.2-4.8) H 4.6 g/dL (3.2-4.8) Calcium Level 10.8 mg/dL (8.7-10.4) H 9.6 mg/dL (8.7-10.4) Magnesium Level 2.6 mg/dL (1.6-2.6) Total Protein 7.9 g/dL (5.7-8.2) 6.6 g/dL (5.7-8.2) Coagulation Test 03/24/25 11:01 D-Dimer, Quantitative < 0.19 mg/L FEU (0.0-0.49) Lipid panel Test 03/24/25 03:20 Cholesterol Level 151 mg/dL (< 200) HDL Cholesterol 22 mg/dL (40-59) L Triglycerides Level 100 mg/dL (< 150) Cardiac Markers Test 03/23/25 21:24 B-Type Natriuretic Peptide < 0 pg/mL (0-100) LFT Test 03/23/25 21:24 03/24/25 03:20 Alanine Aminotransferase (ALT) 87 U/L (7-40) H 70 U/L (7-40) H Alkaline Phosphatase 44 U/L (46-116) L 31 U/L (46-116) L Aspartate Amino Transferase (AST) 48 U/L (13-40) H 35 U/L (13-40) Total Bilirubin 0.6 mg/dL (0.2-1.0) 0.8 mg/dL (0.2-1.0) HgA1c, TSH Test 03/23/25 21:24 03/24/25 03:20 Thyroid Stimulating Hormone (TSH) 3.15 uIU/mL (0.55-4.78) Hemoglobin A1c 5.2 % A1C (<5.7) Urinalysis Test 03/23/25 21:48 Urine Color Colorless (Yellow) Urine Clarity Clear (Clear) Urine pH 7.5 (5.0-9.0) Urine Specific [place] 1.002 (1.001-1.035) Urine Protein Negative (Negative) Urine Ketones Negative (Negative) Urine Blood Negative /uL (Negative) Urine Nitrite Negative (Negative) Urine Bilirubin Negative (Negative) Urine Urobilinogen Normal mg/dL (Negative) Urine Leukocyte Esterase Negative /uL (Negative) Urine RBC <1 /hpf (0 - 3) Urine Microscopic WBC /HPF (0-3) Urine Squamous Epithelial Cells None seen /hpf (<5) Urine Bacteria None seen /hpf (None Seen) Urine Glucose Normal mg/dL (Normal) Assessment/Plan Assessment/Plan Atrial fibrillation with RVR Chest pain Elevated liver function tests Leukocytosis Hyperkalemia Testosterone injection for body building Plan: Repeat potassium was normal. Repeat labs. Cardiology consultation. Echocardiogram. Further plan per orders. Plan discussed with: Patient Date of Service: Mar 24, 2025 Billing Provider: SULMA INTERIANO MD Common Visit Codes: [id number] INP/OBS CARE(HIGH) SULMA INTREIANO MD Mar 24, 2025 13:47
[2025-03-24] MEDS: SODIUM CHLORIDE 0.9% 1,000 ML IV SCH (16:10)
--- NOTE | 2025-03-24 18:48 | ECG ---
[facility] Test Date: 2025-03-24 Test Time: 16:26:41 Pat Name: ANSELMO PAREDES Department: ED Room: 0223T Gender: M Chain Tender: wes : 2005 Requested By: NIVIA MANRIQUE Order Number: [id number] Reading MD: Chavez Dickinson Measurements Intervals [place] Rate: 70 P: 46 TN: 158 QRS: 85 QRSD: 101 T: 24 QT: 351 QTc: 379 Interpretive Statements Sinus rhythm Baseline wander in lead(s) V1 Electronically Signed On 03-28-2025 17:47:40 PDT by Chavez Dickinson Please click the below link to view image of tracing.
[2025-03-24 18:49] VITALS: BP 127/87; PULSE 78; RESP 20; O2SAT 100
[2025-03-24 19:07] VITALS: O2SAT 97
[2025-03-24 19:30] VITALS: PULSE 87; RESP 20; O2SAT 99
[2025-03-24 20:00] VITALS: PULSE 85; PULSE 87; RESP 20; O2SAT 99
[2025-03-24 21:00] VITALS: BP 117/62; PULSE 87; RESP 20; TEMP 98.3; O2SAT 99
[2025-03-25] VITALS (9 sets, daily range): BP systolic 112–143; BP diastolic 55–86; PULSE 69–106; RESP 16–20; TEMP 98.2–98.6; O2SAT 95–99
[2025-03-25 09:27] LABS: Hematocrit 48.7 % (41.0-53.0); Hemoglobin 16.8 g/dL (13.5-17.5); Mean Corpuscular Hemoglobin 29.3 pg (28.0-32.0); Mean Corpuscular Volume 84.8 fL (80.0-100.0); Nucleated Red Blood Cells % 0.1 %
[2025-03-25 09:46] LABS: Alanine Aminotransferase 76 U/L (7-40); Albumin 4.5 g/dL (3.2-4.8); Alkaline Phosphatase 34 U/L (46-116); Anion Gap 7 (5-15); BUN/Creatinine Ratio 6.1 (10.0-20.0); Bilirubin, Total 0.5 mg/dL (0.2-1.0); Blood Urea Nitrogen 7 mg/dL (9-23); Calcium 9.6 mg/dL (8.7-10.4); Carbon Dioxide 30 mmol/L (20-31); Chloride 105 mmol/L (98-107); Glucose 89 mg/dL (74-106); Potassium 4.2 mmol/L (3.5-5.1); Sodium 142 mmol/L (136-145); Total Protein 6.4 g/dL (5.7-8.2)
[2025-03-25] MEDS: ENOXAPARIN SOD 40 MG/0.4 ML SYRINGE SC SCH (10:00)
--- NOTE | 2025-03-25 11:05 | DVH ---
ABDOMINAL ULTRASOUND CLINICAL HISTORY: hi lft TECHNIQUE: Multiple grayscale and color Doppler ultrasound images were obtained of the abdomen. WID: COMPARISON: None FINDINGS: Liver and Biliary System: Increased echogenicity, normal size measuring 16.6 cm. Hypoechoic lesion in the right lobe of the liver measuring 3.2 x 1.8 x 2.6 cm with vascularity. No intrahepatic bile d uct dilatation. The common duct measures 2 cm at the godfrey hepatis. The gallbladder is normal ca liber without wall thickening or cholelithiasis. Pancreas: Not well seen due to overlying bowel gas Kidneys: The right kidney is 10.9 cm. No hydronephrosis, increased echogenicity, shadowing stone, o r focal lesion. IMPRESSION: Hepatic steatosis. Hypoechoic lesion with vascularity in the right lobe of the liver measuring up to 3.2 cm. Consider ob taining MRI of the abdomen (liver lesion protocol) for characterization.
[2025-03-25] MEDS: GADOTERATE MEG 10 MMOL/20ml INJ (0.5MMOL/ml) IV ONE (13:48)
[2025-03-25] MEDS ORDERED: dilTIAZem 120MG ER CAP PO SCH (14:00)
--- NOTE | 2025-03-25 15:41 | DVHSR ---
APPROVED REPORT EXAM: Two-dimensional and M-mode echocardiogram with Doppler and color Doppler. Blood Pressure: 113/61 mmHg INDICATION Atrial Fibrillation W/ RVR RISK FACTORS Height: 6', Weight: 227 DIMENSIONS LVDd5.1 (3.8-5.7cm)LA (2D)3.9 (1.9-4.0cm)Aortic Root3.2 (2.0-3.7cm) LVDs3.5 (2.5-4.0cm)LA (MM) (1.9-4.0cm)Aortic Cusp Exc1.7 (1.5-2.0cm) EF (%) 57.0 (55-70%)Rt. Atrium4.2 (1.9-4.0cm)Asc. Aorta cm IVSd0.9 (0.7-1.1cm)RV (D) (1.8-2.4cm) PWd1.0 (0.7-1.1cm) Mitral Valve MitralMitral Stenosis E wave0.80m/sMV Mean GR.mmHg E/A ratio0.02D MVAcm2 Aortic Valve Aortic ValveAortic Stenosis V10.90m/Yessi Mean GR.3mmHg V21.20m/Yessi Peak GR.6mmHg LVOT Diameter2.4 (1.8-2.4cm)Doppler AVA3.39cm2 Pulmonic Valve V20.70m/s Other Information Quality : Rhythm : Atrial Fibrillation Conclusion Atrial fibrillation Right ventricular enlargement. Valves are normal. EF of 60% with normal RV function. Mild TR. No pericardial effusion masses or vegetations.
--- NOTE | 2025-03-25 16:38 | DVH ---
MRI Abdomen, with IV Contrast Exam Date: 03/25/2025 01:53 PM Comparison: Ultrasound dated 03/25/2025 History: HEPATIC LESION Technique: Multisequence multiplanar MRI images were obtained of the abomen. Findings: Liver: Subtle area of enhancement in segment 4. Spleen: Unremarkable. Pancreas: The pancreas is normal in appearance without focal lesions. Gallbladder and ducts: Gallbladder is normal in appearance. The cystic duct, right and left hepatic d ucts, common hepatic duct, and common bile ducts are unremarkable. The pancreatic duct is within nor mal limits. Adrenal glands: Unremarkable. Kidneys: Normal enhancement without suspicious lesions or hydronephrosis. Visualized bowel: Grossly unremarkable. Vasculature: Unremarkable. Lymphadenopathy: No evidence for lymphadenopathy. Ascites: Absent. Musculoskeletal: Bone marrow signal is normal. IMPRESSION: Indeterminate, subtle area of hyperenhancement in segment 4 most likely represents perfusional change s. No suspicious finding. Recommend repeat CT in 6 months to assess for stability.
--- NOTE | 2025-03-25 16:59 | DVHPN2 ---
Subjective FEELS BETTER. NO CHEST PAIN NO PALPITATION. Reviewed: Care Plan, H&P, Labs, Medications, Previous Orders, Radiology, Other Changes from previous H/P or p: No Changes General: Per HPI Objective Vitals Vital Signs Date Time Temp Pulse Resp B/P (MAP) Pulse Ox O2 Delivery O2 Flow Rate FiO2 03/25/25 16:35 98.3 71 16 120/78 (92) 97 98.3 03/25/25 08:03 Room Air* 0 21 Intake/Output Intake and Output 03/25/25 07:00 Intake Total 1000 ml Balance 1000 ml Intake Oral 800 ml IV Total 200 ml # Voids 2 General Appearance: Alert, Oriented X3, Cooperative, No acute distress HEENT: Atraumatic Lungs: Clear to auscultation Cardiovascular: Regular rate Abdomen: Normal bowel sounds, Soft, No tenderness Extremities: No edema Medications Current Medications Medications Dose Ordered Sig/Cecile Route Start Time Stop Time Status Last Admin Dose Admin Aspirin 81 mg DAILY PO 03/24/25 10:00 03/25/25 10:00 81 MG Metoprolol Tartrate 25 mg BID PO 03/24/25 10:00 03/25/25 10:00 25 MG Clonidine HCl 0.1 mg Q4HP PRN PO 03/23/25 22:45 Sodium Chloride 10 ml Q8HR IV 03/24/25 06:00 03/25/25 14:10 10 ML Acetaminophen/ Hydrocodone Bitart 1 tab Q4HP PRN PO 03/23/25 22:45 Ondansetron HCl 4 mg Q4HP PRN IV 03/23/25 22:45 Docusate Sodium 100 mg BIDPRN PRN PO 03/23/25 22:45 Acetaminophen 650 mg Q6HP PRN PO 03/23/25 22:45 Nitroglycerin 0.4 mg Q5MINP PRN SL 03/23/25 23:00 Morphine Sulfate 2 mg Q30M PRN IV 03/23/25 23:00 Enoxaparin Sodium 40 mg DAILY SC 03/25/25 10:00 03/25/25 10:00 40 MG Sodium Chloride 1,000 ml @ 100 mls/hr Q10H IV 03/24/25 15:45 03/25/25 11:48 100 MLS/HR Laboratory Results Laboratory Tests 03/25/25 08:50 Chemistry Test 03/25/25 08:50 Albumin 4.5 g/dL (3.2-4.8) Calcium Level 9.6 mg/dL (8.7-10.4) Total Protein 6.4 g/dL (5.7-8.2) LFT Test 03/25/25 08:50 Alanine Aminotransferase (ALT) 76 U/L (7-40) H Alkaline Phosphatase 34 U/L (46-116) L Aspartate Amino Transferase (AST) 34 U/L (13-40) Total Bilirubin 0.5 mg/dL (0.2-1.0) Urinalysis Test 03/23/25 21:48 Urine Color Colorless (Yellow) Urine Clarity Clear (Clear) Urine pH 7.5 (5.0-9.0) Urine Specific [place] 1.002 (1.001-1.035) Urine Protein Negative (Negative) Urine Ketones Negative (Negative) Urine Blood Negative /uL (Negative) Urine Nitrite Negative (Negative) Urine Bilirubin Negative (Negative) Urine Urobilinogen Normal mg/dL (Negative) Urine Leukocyte Esterase Negative /uL (Negative) Urine RBC <1 /hpf (0 - 3) Urine Microscopic WBC /HPF (0-3) Urine Squamous Epithelial Cells None seen /hpf (<5) Urine Bacteria None seen /hpf (None Seen) Urine Glucose Normal mg/dL (Normal) Assessment/Plan Assessment/Plan Atrial fibrillation with RVR Chest pain Elevated liver function tests Leukocytosis Hyperkalemia Testosterone injection for body building Hepatic lesion of indeterminate etiology/per ultrasound Echocardiogram showed right ventricular enlargement/EF 60%/mild TR Plan: Abdominal MRI with liver protocol. Testosterone level. Hepatitis B and C serology pending Plan discussed with: Patient My Orders Orders - SULMA INTERIANO MD Procedure Category Date Status Time Hepatitis B Surface LAB 03/24/25 In Process Antigen 21:27 Hepatitis C Antibody LAB 03/24/25 In Process 21:27 LIVER US 03/25/25 Resulted 06:06 Abdomen With Contrast MRI 03/25/25 Resulted 12:09 Date of Service: Mar 25, 2025 Billing Provider: SULMA INTERIANO MD Common Visit Codes: [id number] INP/OBS CARE(HIGH) SULMA INTERIANO MD Mar 25, 2025 16:59
--- NOTE | 2025-03-25 20:47 | DVHPN2 ---
Subjective Denies chest pain, palpitation or shortness of breath No cardiac event reported Reviewed: Care Plan, H&P, Labs, Medications, Previous Orders, Radiology, Other Changes from previous H/P or p: No Changes General: Per HPI Objective Vitals Vital Signs Date Time Temp Pulse Resp B/P (MAP) Pulse Ox O2 Delivery O2 Flow Rate FiO2 03/25/25 20:00 100 18 95 Room Air* 0 21 03/25/25 16:35 98.3 120/78 (92) 98.3 Intake/Output Intake and Output 03/25/25 07:00 Intake Total 1000 ml Balance 1000 ml Intake Oral 800 ml IV Total 200 ml # Voids 2 General Appearance: Alert, Oriented X3, Cooperative, No acute distress HEENT: Atraumatic Lungs: Clear to auscultation Cardiovascular: Regular rate Abdomen: Normal bowel sounds, Soft, No tenderness Extremities: No edema Medications Current Medications Medications Dose Ordered Sig/Cecile Route Start Time Stop Time Status Last Admin Dose Admin Aspirin 81 mg DAILY PO 03/24/25 10:00 03/25/25 10:00 81 MG Metoprolol Tartrate 25 mg BID PO 03/24/25 10:00 03/25/25 10:00 25 MG Clonidine HCl 0.1 mg Q4HP PRN PO 03/23/25 22:45 Sodium Chloride 10 ml Q8HR IV 03/24/25 06:00 03/25/25 14:10 10 ML Acetaminophen/ Hydrocodone Bitart 1 tab Q4HP PRN PO 03/23/25 22:45 Ondansetron HCl 4 mg Q4HP PRN IV 03/23/25 22:45 Docusate Sodium 100 mg BIDPRN PRN PO 03/23/25 22:45 Acetaminophen 650 mg Q6HP PRN PO 03/23/25 22:45 Nitroglycerin 0.4 mg Q5MINP PRN SL 03/23/25 23:00 Morphine Sulfate 2 mg Q30M PRN IV 03/23/25 23:00 Enoxaparin Sodium 40 mg DAILY SC 03/25/25 10:00 03/25/25 10:00 40 MG Sodium Chloride 1,000 ml @ 100 mls/hr Q10H IV 03/24/25 15:45 03/25/25 11:48 100 MLS/HR Laboratory Results Laboratory Tests 03/25/25 08:50 Chemistry Test 03/25/25 08:50 Albumin 4.5 g/dL (3.2-4.8) Calcium Level 9.6 mg/dL (8.7-10.4) Total Protein 6.4 g/dL (5.7-8.2) LFT Test 03/25/25 08:50 Alanine Aminotransferase (ALT) 76 U/L (7-40) H Alkaline Phosphatase 34 U/L (46-116) L Aspartate Amino Transferase (AST) 34 U/L (13-40) Total Bilirubin 0.5 mg/dL (0.2-1.0) Urinalysis Test 03/23/25 21:48 Urine Color Colorless (Yellow) Urine Clarity Clear (Clear) Urine pH 7.5 (5.0-9.0) Urine Specific [place] 1.002 (1.001-1.035) Urine Protein Negative (Negative) Urine Ketones Negative (Negative) Urine Blood Negative /uL (Negative) Urine Nitrite Negative (Negative) Urine Bilirubin Negative (Negative) Urine Urobilinogen Normal mg/dL (Negative) Urine Leukocyte Esterase Negative /uL (Negative) Urine RBC <1 /hpf (0 - 3) Urine Microscopic WBC /HPF (0-3) Urine Squamous Epithelial Cells None seen /hpf (<5) Urine Bacteria None seen /hpf (None Seen) Urine Glucose Normal mg/dL (Normal) Assessment/Plan Assessment/Plan Assessment * New onset atrial fibrillation with rapid ventricular response, now rate controlled with diltiazem. Likely secondary to exogenous anabolic steroids testosterone use which has been associated with arrhythmogenic effects including atrial fibrillation. * Hyperkalemia, resolved * Dyslipidemia, mild * Obesity * Rule out pericarditis Plan/Recommendation We will continue with the following plan/recommendations ( ): 03/25/25 - Remained in sinus rhythm. Continue with beta wilma. Echocardiogram revealed EF 60 % , mild TR. Counseled caffeine cessation or other stimulants. Follow-up with Cardiology in outpatient setting. New onset Atrial fibrillation with RVR, now rate is controlled Rule out pericarditis * Chads Vasc score 0-- Lovenox prophylaxis * Continue with beta wilma * Monitor rhythm rate on telemetry * Echocardiogram to assess for structural heart disease or atrial and enlargement * Monitor electrolytes and replete as needed * ESR, CRP * Close cardiac surveillance Possible Substance induced arrhythmia * Counseled patient on discontinuing testosterone injections * Educate on cardiovascular risk associated with anabolic steroid use Obesity * Lifestyle modification counseled with diet, regular exercise, and weight loss Plan discussed with: Patient Plan discussed with: Patient Date of Service: Mar 25, 2025 Billing Provider: JOSEPH JONAS Sr., MD Common Visit Codes: CONSULT ONLY Consultation Codes: [id number] CONSULT <45MIN NIVIA MANRIQUE COLLARETTE SEPARATOR Mar 25, 2025 20:47
[2025-03-26 05:00] VITALS: BP 117/70; PULSE 90; RESP 20; TEMP 98; O2SAT 91
[2025-03-26 08:00] VITALS: PULSE 60; PULSE 61; RESP 20; O2SAT 95
[2025-03-26 09:00] VITALS: BP 124/85; PULSE 78; RESP 16; TEMP 97.9; O2SAT 99
[2025-03-26 10:08] LABS: Hepatitis B Surface Antigen Negative (Negative)
[2025-03-26 10:39] LABS: Hepatitis C Antibody Negative (Negative)
--- NOTE | 2025-03-26 10:47 | DVHPN2 ---
Subjective Downgrade this morning with no complaints Reviewed: Care Plan, H&P, Labs, Medications, Previous Orders, Radiology, Other (Consultations) Changes from previous H/P or p: No Changes Objective Vitals Vital Signs Date Time Temp Pulse Resp B/P (MAP) Pulse Ox O2 Delivery O2 Flow Rate FiO2 03/26/25 08:35 60 122/72 03/26/25 05:00 98.0 20 91 98.0 03/25/25 20:00 Room Air* 0 21 Intake/Output Intake and Output 03/26/25 07:00 Intake Total 2225 ml Balance 2225 ml Intake Oral 1225 ml IV Total 1000 ml # Voids 5 # Bowel Movements 1 General Appearance: Alert, Oriented X3, Cooperative, No acute distress HEENT: Atraumatic Lungs: Clear to auscultation, Normal air movement Cardiovascular: Regular rate, Normal S1, Normal S2 Abdomen: Normal bowel sounds, Soft, No tenderness Extremities: No edema Neuro: Normal speech, Cranial nerves 3-12 NL Psych/Mental Status: Mental status NL, Mood NL Medications Current Medications Medications Dose Ordered Sig/Cecile Route Start Time Stop Time Status Last Admin Dose Admin Aspirin 81 mg DAILY PO 03/24/25 10:00 03/26/25 08:35 81 MG Metoprolol Tartrate 25 mg BID PO 03/24/25 10:00 03/26/25 08:35 25 MG Clonidine HCl 0.1 mg Q4HP PRN PO 03/23/25 22:45 Sodium Chloride 10 ml Q8HR IV 03/24/25 06:00 03/26/25 07:00 10 ML Acetaminophen/ Hydrocodone Bitart 1 tab Q4HP PRN PO 03/23/25 22:45 Ondansetron HCl 4 mg Q4HP PRN IV 03/23/25 22:45 Docusate Sodium 100 mg BIDPRN PRN PO 03/23/25 22:45 Acetaminophen 650 mg Q6HP PRN PO 03/23/25 22:45 Nitroglycerin 0.4 mg Q5MINP PRN SL 03/23/25 23:00 Morphine Sulfate 2 mg Q30M PRN IV 03/23/25 23:00 Enoxaparin Sodium 40 mg DAILY SC 03/25/25 10:00 03/25/25 10:00 40 MG Sodium Chloride 1,000 ml @ 100 mls/hr Q10H IV 03/24/25 15:45 03/25/25 11:48 100 MLS/HR Laboratory Results Laboratory Tests 03/25/25 08:50 Urinalysis Test 03/23/25 21:48 Urine Color Colorless (Yellow) Urine Clarity Clear (Clear) Urine pH 7.5 (5.0-9.0) Urine Specific [place] 1.002 (1.001-1.035) Urine Protein Negative (Negative) Urine Ketones Negative (Negative) Urine Blood Negative /uL (Negative) Urine Nitrite Negative (Negative) Urine Bilirubin Negative (Negative) Urine Urobilinogen Normal mg/dL (Negative) Urine Leukocyte Esterase Negative /uL (Negative) Urine RBC <1 /hpf (0 - 3) Urine Microscopic WBC /HPF (0-3) Urine Squamous Epithelial Cells None seen /hpf (<5) Urine Bacteria None seen /hpf (None Seen) Urine Glucose Normal mg/dL (Normal) Labs and/or images reviewed: Labs reviewed by me, Image(s) reviewed by me Assessment/Plan Assessment/Plan Covering: Atrial fibrillation with RVR; now in normal sinus rhythm Chest pain due to above; resolved Elevated LFTs; due to steroids/testosterone use Hepatic lesion; most likely due to steroids/testosterone use Leukocytosis; most likely reactive; no signs/symptoms of infection Hyperkalemia; due to steroids/testosterone use; resolved Steroids/testosterone abuse Tobacco use disorder Obesity Reviewed lab work and imaging studies including echocardiogram To repeat liver imaging in three months as outpatient Was on telemetry; now in normal sinus rhythm To follow up with Dr. Hastings next Wednesday To follow up with Cardiology within two weeks Counseled the patient on the importance of adopting healthy lifestyle with diet and exercise in order to lose weight Counseled the patient on the importance of stopping using steroids/testosterone for body building Counseled the patient on the importance of avoiding caffeine and any stimulant Counseled on tobacco use cessation for 16 minutes Discharged on metoprolol tartrate 25 mg twice a day Discharged on aspirin 81 mg daily Goals of care discussed with the patient for 20 minutes; full code Late Entry. This medical document was created using an electronic medical record system with computerized dictation system. Although this document has been carefully reviewed, there might still be some phonetic and typographical errors. These areas are purely typographical due to imperfections of the software programs, and do not reflect any compromise in the patient's medical care. Plan discussed with: Patient, Other (Nurse) Date of Service: Mar 26, 2025 Billing Provider: SHAUNA HASTINGS MD Common Visit Codes: [id number] INP/OBS CARE(MOD) Secondary Visit Codes: [id number] CHNG SMOKING >10MIN (16 minutes), 85035- ADVANCED CARE PLAN 30 MINUTES (20 minutes) SHAUNA HASTINGS MD Mar 26, 2025 10:47
[2025-03-26 12:56] VITALS: BP 125/76; PULSE 76; RESP 16; TEMP 97.8; O2SAT 98
[2025-03-26] MEDS ORDERED: MET25T PO (13:23)
[2025-03-26] MEDS ORDERED: ASPI-325 PO (13:23)
--- NOTE | 2025-03-26 13:27 | DVHDS2 ---
Discharge Summary Date of Admission Mar 23, 2025 at 23:05 Date of Discharge: Mar 26, 2025 Admitting Diagnosis Chest pain Labs/Diagnostic Data: Laboratory Results Test 03/25/25 08:50 03/24/25 11:01 03/24/25 03:20 03/24/25 00:11 White Blood Count 8.1 10^3/uL (4.4-10.8) Red Blood Count 5.74 10^6/uL (4.5-5.90) Hemoglobin 16.8 g/dL (13.5-17.5) Hematocrit 48.7 % (41.0-53.0) Mean Corpuscular Volume 84.8 fL (80.0-100.0) Mean Corpuscular Hemoglobin 29.3 pg (28.0-32.0) Mean Corpuscular Hemoglobin Concent 34.5 g/dL (32.0-36.0) Red Cell Distribution Width 15.2 % (11.8-14.3) Platelet Count 231 10^3/uL (140-450) Mean Platelet Volume 8.2 fL (6.9-10.8) Neutrophils (%) (Auto) 58.1 % (37.0-80.0) Lymphocytes (%) (Auto) 24.4 % (10.0-50.0) Monocytes (%) (Auto) 10.2 % (0.0-12.0) Eosinophils (%) (Auto) 6.9 % (0.0-7.0) Basophils (%) (Auto) 0.4 % (0.0-2.0) Neutrophils # (Auto) 4.7 10 ^3/uL (1.6-8.6) Lymphocytes # (Auto) 2.0 10 ^3/uL (0.4-5.4) Monocytes # (Auto) 0.8 10 ^3/uL (0-1.3) Eosinophils # (Auto) 0.6 10 ^3/uL (0-0.8) Basophils # (Auto) 0 10 ^3/uL (0-0.2) Nucleated Red Blood Cells 0.1 % Sodium Level 142 mmol/L (136-145) Potassium Level 4.2 mmol/L (3.5-5.1) Chloride Level 105 mmol/L (98-107) Carbon Dioxide Level 30 mmol/L (20-31) Anion Gap 7 (5-15) Blood Urea Nitrogen 7 mg/dL (9-23) Creatinine 1.15 mg/dL (0.700-1.30) Glomerular Filtration Rate Calc 92 mL/min (>90) BUN/Creatinine Ratio 6.1 (10.0-20.0) Serum Glucose 89 mg/dL (74-106) Calcium Level 9.6 mg/dL (8.7-10.4) Total Bilirubin 0.5 mg/dL (0.2-1.0) Aspartate Amino Transferase (AST) 34 U/L (13-40) Alanine Aminotransferase (ALT) 76 U/L (7-40) Alkaline Phosphatase 34 U/L (46-116) Total Protein 6.4 g/dL (5.7-8.2) Albumin 4.5 g/dL (3.2-4.8) D-Dimer, Quantitative < 0.19 mg/L FEU (0.0-0.49) Hepatitis B Surface Antigen Negative (Negative) Hepatitis C Antibody Negative (Negative) Erythrocyte Sedimentation Rate 1 mm/hr (0-20) Hemoglobin A1c 5.2 % A1C (<5.7) C-Reactive Protein High Sensitivity 0.08 mg/dL (<1.0) Triglycerides Level 100 mg/dL (< 150) Cholesterol Level 151 mg/dL (< 200) LDL Cholesterol 129 mg/dL (< 100) HDL Cholesterol 22 mg/dL (40-59) Troponin I High Sensitivity 11 ng/L (</=54) Test 03/23/25 22:42 03/23/25 22:24 03/23/25 21:48 03/23/25 21:24 Free Thyroxine (T4) Calculated 1.18 ng/dL (0.89-1.76) Plasma/Serum Blood Alcohol < 3.0 mg/dL (<10) Urine Color Colorless (Yellow) Urine Clarity Clear (Clear) Urine pH 7.5 (5.0-9.0) Urine Specific [place] 1.002 (1.001-1.035) Urine Protein Negative (Negative) Urine Ketones Negative (Negative) Urine Blood Negative /uL (Negative) Urine Nitrite Negative (Negative) Urine Bilirubin Negative (Negative) Urine Urobilinogen Normal mg/dL (Negative) Urine Leukocyte Esterase Negative /uL (Negative) Urine RBC <1 /hpf (0 - 3) Urine Microscopic WBC /HPF (0-3) Urine Squamous Epithelial Cells None seen /hpf (<5) Urine Bacteria None seen /hpf (None Seen) Urine Glucose Normal mg/dL (Normal) Urine Opiates Screen Neg (NEGATIVE) Urine Fentanyl Screen Neg (NEGATIVE) Urine Barbiturates Screen Neg (NEGATIVE) Urine Phencyclidine Screen Neg (NEGATIVE) Urine Amphetamines Screen Neg (NEGATIVE) Urine Benzodiazepines Screen Neg (NEGATIVE) Urine Cocaine Screen Neg (NEGATIVE) Urine Cannabinoids Screen Neg (NEGATIVE) Magnesium Level 2.6 mg/dL (1.6-2.6) B-Type Natriuretic Peptide < 0 pg/mL (0-100) Thyroid Stimulating Hormone (TSH) 3.15 uIU/mL (0.55-4.78) Other Laboratory Tests 03/25/25 08:50 Brief Hx & Hospital Course: Covering: A 20-year-old male patient; with no known past medical history; who presented to emergency department with chest pain; details as below. Atrial fibrillation with RVR; now in normal sinus rhythm Chest pain due to above; resolved Elevated LFTs; due to steroids/testosterone use Hepatic lesion; most likely due to steroids/testosterone use Leukocytosis; most likely reactive; no signs/symptoms of infection Hyperkalemia; due to steroids/testosterone use; resolved Steroids/testosterone abuse Tobacco use disorder Obesity Reviewed lab work and imaging studies including echocardiogram To repeat liver imaging in three months as outpatient Was on telemetry; now in normal sinus rhythm To follow up with Dr. Hastings next Wednesday To follow up with Cardiology within two weeks Counseled the patient on the importance of adopting healthy lifestyle with diet and exercise in order to lose weight Counseled the patient on the importance of stopping using steroids/testosterone for body building Counseled the patient on the importance of avoiding caffeine and any stimulant Counseled on tobacco use cessation Discharged on metoprolol tartrate 25 mg twice a day Discharged on aspirin 81 mg daily Physical examination as documented in the progress note of the day of discharge Late Entry. This medical document was created using an electronic medical record system with computerized dictation system. Although this document has been carefully reviewed, there might still be some phonetic and typographical errors. These areas are purely typographical due to imperfections of the software programs, and do not reflect any compromise in the patient's medical care. Consults/Reason for consult Cardiology for chest pain Condition at Discharge: Stable Final Diagnosis/Problems List AFib with RVR; now in normal sinus rhythm Nicotine use disorder Discharge Disposition: Home Discharge Instruct/Medications Diet: Regular Activity: No Restrictions, As Tolerated Follow Up/Referral: To follow up with Dr. Hastings/Dr. Haas next Wednesday April 02, 2025//To follow up with Dr. Dickinson within two weeks Medications: Metoprolol tartrate 25 mg twice a day; Aspirin 81 mg daily Scheduled Aspirin (Aspirin Low Dose), 81 MG PO DAILY Metoprolol Tartrate (Lopressor), 25 MG PO BID Discharge Statement: "Patient was advised to return to the ER or call 911 if any headaches, dizziness, shortness of breath, chest pain, abdominal pain, bleeding, fevers, or worsening of medical condition. Patient was counseled about treatment plan, medications, possible side effects, patientverbalized understanding. All questions were answered to the best of my ability. This discharge took greater then 30 minutes in planning, reviewing documentation, counseling the patient, and discussing with other team members." ASSESSMENT ASSESSMENT Assessment AFib with RVR; now in normal sinus rhythm Nicotine use disorder Date of Service: Mar 26, 2025 Billing Provider: SHAUNA HASITNGS MD Common Visit Codes: 52738-PSZ/OBS DISCH DAY >30min SHAUNA HASTINGS MD Mar 26, 2025 13:26
[2025-03-26 13:52] VITALS: BP 122/72; PULSE 60; RESP 18; TEMP 98.6; O2SAT 96
== END 2025-03-26 14:52 | disposition home or self-care (01) | DRG 201 ==
LOC: ER 21:15 → OVERFLOW 23:05 → TELE-CENTR 03-24 18:51
PROVIDERS: ADMIT Internal Medicine; ATTEND Internal Medicine
DX: I48.20 Chronic atrial fibrillation, unspecified (principal); D72.829 Elevated white blood cell count, unspecified; E78.5 Hyperlipidemia, unspecified; E66.9 Obesity, unspecified; E86.0 Dehydration; E87.5 Hyperkalemia; T38.0X5A Adverse effect of glucocorticoids and synthetic analogues, initial encounter; T38.7X5A Adverse effect of androgens and anabolic congeners, initial encounter; K76.9 Liver disease, unspecified; F17.200 Nicotine dependence, unspecified, uncomplicated; Z79.899 Other long term (current) drug therapy; Z82.49 Family history of ischemic heart disease and other diseases of the circulatory system; Y92.89 Other specified places as the place of occurrence of the external cause; Z68.30 Body mass index [BMI] 30.0-30.9, adult
CPT/HCPCS: 36415; 71045; 74181; 76705; 80053; 80061; 80307; 80320; 81001; 83036; 83735; 83880; 84132; 84439; 84443; 84484; 85025; 85379; 85652; 86141; 86803; 87340; 93005; 93306; 96372; 96374; 96375; 99291; G0378

== ENCOUNTER 2025-08-15 10:45 | Emergency (ER) | payer MEDICAID ==
[~2025-08-15] VITALS: Ht 185.4 cm; Wt 100.0 kg
[~2025-08-15 10:45] MED LIST changes: -ACE3T PO; +ASPI-325 PO; -IBUP-1455 PO; +MET25T PO
[2025-08-15] MEDS: ACETAMINOPHEN 325 MG TAB PO ONE ×2 (10:54→12:51)
--- NOTE | 2025-08-15 11:02 | ECG ---
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
--- NOTE | 2025-08-15 11:57 | ED.PDOC ---
History of Present Illness HPI Comments A 20 YEAR OLD MALE PRESENTS TO THE ED WITH COMPLAINT OF THROAT PAIN. PATIENT REPORTS THAT HE HAD WENT TO URGENT CARE TODAY FOR A SORE THROAT. PATIENT RELAYS THAT HE WAS DIAGNOSED WITH STREP THROAT, HOWEVER, HE WAS ALSO TOLD HIS HEART RATE WAS IN THE 160S, NEEDING TO BE EVALUATED BY THE ED. PATIENT STATES THAT HE HAS HISTORY OF A-FIB AND HTN, CURRENTLY TAKING BLOOD THINNERS AND HTN MEDICATION DAILY. PATIENT DENIES FEVER, CHILLS, SHORTNESS OF BREATH, CHEST PAIN, ABDOMINAL PAIN, NAUSEA, VOMITING, HEADACHE, OR OTHER COMPLAINTS. NO OTHER SYMPTOMS OR MODIFYING FACTORS AT THIS TIME. PATIENT IS ALERT, ORIENTED X 4, AND HAS STEADY GAIT. Chief Complaint: Neck Pain Time Seen by MD: 11:56 Primary Care Provider: BRANDO Crenshaw Notes: Nurses Notes, Medications, Allergies Allergies: Coded Allergies: NO KNOWN ALLERGIES (Unverified , 03/16/10) Home Meds Active Scripts Metoprolol Tartrate (Lopressor) 25 Mg Tb, 25 MG PO BID for 90 Days, #180 TAB Prov:SHAUNA HASTINGS MD 03/26/25 Aspirin (Aspirin Low Dose) 81 Mg Tab, 81 MG PO DAILY for 30 Days, #30 TAB 1 Refill Prov:SHAUNA HASTINGS MD 03/26/25 Information Source: Patient Mode of Arrival: Ambulatory Severity: Moderate Timing: Hours Duration: Since onset Prehospital treatment: None Past Medical History PAST MEDICAL HISTORY: AFIB, HTN Surgical History: Denies all surgeries Family History Family History: Reviewed,noncontributory to illness Social History Smoker: Non-Smoker Alcohol: Denies ETOH Use Drugs: Denies Drug Use Lives In: Home Constitutional: denies: chills, diaphoresis, fatigue, fever, malaise, sweats, weakness, others EENTM: reports: throat pain, throat swelling; denies: blurred vision, double vision, ear bleeding, ear discharge, ear drainage, ear pain, ear ringing, eye pain, eye redness, hearing loss, mouth pain, mouth swelling, nasal discharge, nose bleeding, nose congestion, nose pain, photophobia, tearing, voice changes, others Respiratory: denies: cough, hemoptysis, orthopnea, SOB at rest, shortness of breath, SOB with excertion, stridor, wheezing, others Cardiovascular: denies: chest pain, dizzy spells, diaphoresis, Dyspnea on exertion, edema, irregular heart beat, left arm pain, lightheadedness, palpitations, PND, syncope, others Gastrointestinal: denies: abdomen distended, abdominal pain, blood streaked bowels, constipated, diarrhea, dysphagia, difficulty swallowing, hematemesis, melena, nausea, poor appetite, poor fluid intake, rectal bleeding, rectal pain, vomiting, others Genitourinary: denies: burning, dysuria, flank pain, frequency, hematuria, incontinence, penile discharge, penile sore, pain, testicle pain, testicle swelling, urgency, others Neurological: denies: dizziness, fainting, headache, left sided numbness, left sided weakness, numbness, paresthesia, pre-existing deficit, right sided numbness, right sided weakness, seizure, speech problems, tingling, tremors, weakness, others Musculoskeletal: denies: back pain, gout, joint pain, joint swelling, muscle pain, muscle stiffness, neck pain, others Integumetry: denies: bruises, change in color, change in hair/nails, dryness, laceration, lesions, lumps, rash, wounds, others Allergic/Immunocompromised: denies: Difficulty Healing, Frequent Infections, Hives, Itching, others Hematologic/Lymphatic: denies: anemia, blood clots, easy bleeding, easy bruising, swollen glands, others Endocrine: denies: excessive hunger, excessive sweating, excessive thirst, excessive urination, flushing, intolerance to cold, intolerance to heat, u nexplained weight gain, unexplained weight loss, others Psychiatric: denies: anxiety, bipolar disorder, depression, hopeless, panic disorder, schizophrenia, sleepless, suicidal, others All Other Systems: Reviewed and Negative Physical Exam General Appearance: No Apparent Distress, Normal HEENT: PERRL/EOMI, Pharyngeal Erythema (TONSILLAR SWELLING, NO EXUDATES. ), TMs Normal Neck: Full Range of Motion, Lymphadenopathy (R), Non-Tender, Normal, Normal Inspection Respiratory: Chest Non-Tender, Lungs Clear, No Accessory Muscle Use, No Respiratory Distress, Normal Breath Sounds Cardiovascular: No Edema, No JVD, No Murmur, No Gallop, Normal Peripheral Pulses, Regular Rate/Rhythm Breast Exam: Deferred Gastrointestinal: No Organomegaly, Non Tender, No Pulsatile Mass, Normal Bowel Sounds, Soft Genitalia: Deferred Pelvic: Deferred Rectal: Deferred Extremities: No calf tenderness, Normal capillary refill, Normal inspection, Normal range of motion, Non-tender, No pedal edema Musculoskeletal : Apperance: Normal Neurologic: Alert, fish packer II-XII nml as Tested, No Motor Deficits, Normal Affect, Normal Mood, No Sensory Deficits Cerebellar Function: Normal Reflexes: Normal Skin: Dry, Normal Color, Warm Peripheral Pulses: 2+ carotid (R), 2+ carotid (L) Lymphatic: Cervical Adenopathy (R), No Adenopathy Was a procedure done? Was a procedure done?: No Differential Dx Considerations may include: ACUTE ERYTHEMATOUS TONSILLITIS, STREP TONSILLITIS X-Ray, Labs, Meds, VS Vital Signs Date Time Temp Pulse Resp B/P (MAP) Pulse Ox O2 Delivery O2 Flow Rate FiO2 08/15/25 11:00 124 08/15/25 10:54 100.0 08/15/25 10:47 100.0 123 18 122/84 97 100.0 Current Medications Medications (Trade) Dose Ordered Sig/Cecile Route Start Time Stop Time Status Last Admin Acetaminophen (Tylenol Tablet) 650 mg ONCE ONCE PO 08/15/25 11:00 08/15/25 11:01 DC 08/15/25 10:54 Ceftriaxone Sodium (Rocephin) 1,000 mg ONCE ONCE IM 08/15/25 12:15 08/15/25 12:41 DC 08/15/25 12:52 Methylprednisolone Sodium Succinate (Solu Medrol) 125 mg ONCE ONCE IM 08/15/25 12:15 08/15/25 12:41 DC 08/15/25 12:53 X-Ray, Labs, Meds, VS Comment EXTERNAL MEDICAL RECORDS REVIEWED: [NONE] INDEPENDENT HISTORIANS: [NONE] SOCIAL DETERMINANTS OF HEALTH: [NONE] LABS ORDERED: NONE REVIEWED AND INTERPRETED RESULTS: NONE IMAGING ORDERED: NONE TREATMENTS ORDERED: ROCEPHIN 1G IM AND SOLU-MEDROL 125MG IM, TYLENOL 650MG PO PROCEDURES PERFORMED: NONE CRITICAL CARE TIME: NONE I HAVE DISCUSSED THE PATIENT WITH THE ATTENDING PHYSICIAN DR. GAN AND HE AGREES WITH THE PATIENT'S PLAN OF CARE AND DISPOSITION. BASED ON HISTORY OF PRESENT ILLNESS, AND PHYSICAL EXAM, PATIENT WILL BE DISC HARGED HOME. DISCUSSED PLAN FOR DISCHARGE HOME WITH RX AZITHROMYCIN AND MOTRIN 600MG. MEDICATION WARNINGS GIVEN. SHARED DECISION MAKING: DISCUSSED WITH PATIENT THAT THEIR WORKUP WAS NORMAL. PATIENT INSTRUCTED TO FOLLOW UP WITH PRIMARY CARE PROVIDER IN 1-2 DAYS FOR RE- EVALUATION OF SYMPTOMS. PATIENT VERBALIZES UNDERSTANDING TO RETURN TO ED FOR NEW OR WORSENING SYMPTOMS OR IF FOLLOW UP WITH PCP CANNOT BE OBTAINED. PATIENT FEELS COMFORTABLE GOING HOME AT THIS TIME. ALL QUESTIONS ADDRESSED AT TIME OF DISCHARGE. Time of 1ST Reevaluation: 13:09 Reevaluation 1ST: Improved Patient Education/Counseling: Diagnosis, Treatment, Need For Follow Up Family Education/Counseling: Diagnosis, Treatment, No Family Present Medical Screening: No EMC Exist At This Time SEPSIS Sepsis Screen Date sepsis recognized/suspect: Aug 15, 2025 Time Sepsis recognized/suspect: 1049 Recent Procedure: No On Antibiotic Therapy: No Respiratory Rate >20: No Heart Rate >90: Yes Temp<36 C (96.8 F) or >38.3 C: No SBP <90 or MAP <65 mmHG: No New Acute Mental Status Change: No Is the patient on CPAP, BIPAP,: No Vital Signs Date Time Temp Pulse Resp B/P (MAP) Pulse Ox O2 Delivery O2 Flow Rate FiO2 08/15/25 11:00 124 08/15/25 10:54 100.0 08/15/25 10:47 100.0 123 18 122/84 97 100.0 Medications Medications Dose Ordered Sig/Cecile Route Start Time Stop Time Status Last Admin Dose Admin Acetaminophen 650 mg ONCE ONCE PO 08/15/25 11:00 08/15/25 11:01 DC 08/15/25 10:54 Acetaminophen 650 mg STK-MED ONCE PO 08/15/25 10:54 08/15/25 10:53 DC 08/15/25 12:51 Ceftriaxone Sodium 1,000 mg ONCE ONCE IM 08/15/25 12:15 08/15/25 12:41 DC 08/15/25 12:52 Methylprednisolone Sodium Succinate 125 mg ONCE ONCE IM 08/15/25 12:15 08/15/25 12:41 DC 08/15/25 12:53 Departure 1 Departure Time of Disposition: 13:09 Impression: Primary Impression: Acute erythematous tonsillitis Disposition: HOME / SELF CARE / HOMELESS Condition: Stable Additional Instructions: FOLLOW-UP WITH PCP IN 1 TO 2 DAYS. TAKE MEDICATIONS PRESCRIBED. RETURN TO ED FOR ANY NEW OR WORSENING SYMPTOMS. e-Prescriptions Ibuprofen (Ibuprofen) 600 Mg Tab 1 TAB PO QID, #30 TAB Prov: BRIANNA FUNG 08/15/25 Azithromycin (Azithromycin) 500 Mg Tab 1 TAB PO DAILY, #5 TAB Prov: BRIANNA FUNG 08/15/25 Discharged With: Self Critical Care Note Critical Care Time?: No Stability Stability form required: No Heart Score Heart Score: Heart Score Response (Comments) Value History N/A 0 EKG Repolarization Disturb 1 Age <45 0 Risk Factors No known risk factors 0 Troponin N/A 0 Total 1 I personally scribed for BRIANNA FUNG ([email or web address]) on 08/15/25 at 11:57. Electronically submitted by Frandy Sanches ([email or web address]). I personally scribed for BRIANNA FUNG ([email or web address]) on 08/15/25 at 12:10. Electronically submitted by Frandy Sanches ([email or web address]). I personally scribed for BRIANNA FUNG ([email or web address]) on 08/15/25 at 13:05. Electronically submitted by Frandy Sanches ([email or web address]). BRIANNA FUNG Aug 15, 2025 11:57
[2025-08-15] MEDS: cefTRIAXone SOD 1,000 MG VL IM ONE (12:52)
[2025-08-15] MEDS: methylPREDNISolone SOD SUCC 125 MG/2 ML VL IM ONE (12:53)
[2025-08-15] MEDS ORDERED: AZIT500T66 PO (13:10)
[2025-08-15] MEDS ORDERED: IBUP-1454 PO (13:10)
[2025-08-15 13:11] VITALS: BP 150/87; PULSE 100; RESP 18; TEMP 99.1; O2SAT 100
== END 2025-08-15 13:20 | disposition home or self-care (01) ==
LOC: ER 10:45
DX: J03.90 Acute tonsillitis, unspecified (principal); I48.91 Unspecified atrial fibrillation; I10 Essential (primary) hypertension; Z79.899 Other long term (current) drug therapy; Z79.82 Long term (current) use of aspirin
CPT/HCPCS: 93005; 96372; 99284; J0696; J2919

== ENCOUNTER 2025-08-18 17:18 | Inpatient (IN) | payer MEDICAID ==
[~2025-08-18] VITALS: Ht 182.9 cm; Wt 101.5 kg
[~2025-08-18 17:18] MED LIST changes: +AZIT500T66 PO; +IBUP-1454 PO
--- NOTE | 2025-08-18 17:30 | ECG ---
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
--- NOTE | 2025-08-18 17:55 | ED.PDOC ---
Eye-HPI HPI Comments HPI: Shahnaz 20 y.o male presents to the ED for a chief complaint of an ongoing sore throat. Patient was diagnosed with strep throat recently, was seen at this facility on 08/15/25 where he was then diagnosed with Acute erythematous tonsillitis and rx Azithromycin. Patient has been taking medication however is not getting better and states he is having difficulty swallowing. Patient presents trachy cardiac at 133 and febrile 101.5 F upon ED arrival. SPO2 reads 985 RA Past medical history: AFIB and HTN Past surgical history: Denies Allergies: NKDA HPI: Poor Historian. almasad: Per, tachycardic, sore throat, exudates, submandibular lymphadenopathy Past Medical History: Past Surgical History: REVIEW OF SYSTEMS: CONSTITUTIONAL: Denies acute: diaphoresis, chills, HEAD: Denies acute: headache, photophobia Eyes: Denies acute: Double vision, vision loss, eye pain, eye discharge. EARS: Denies acute: tinnitus, hearing loss, ear discharge, ear pain, THROAT: Denies acute: swelling, difficulty swallowing , change in voice. NECK: Denies acute: neck pain, neck swelling, stiff neck. HEART: Denies acute : chest pain, palpitations, LUNGS: Denies acute: SOB, wheezing, cough, hemoptysis ABDOMEN: Denies acute: abdominal pain, Nausea, Vomiting, diarrhea, melena , hematemesis, hematochezia SKIN: Denies acute: rash, redness, lesions, itchiness. EXTREMITIES: Denies acute: calf pain, numbness, tingling, weakness, denies pain in extremity. Denies acute: Low back pain. Neuro: Denies acute: focal neurological deficit, motor or sensory focal neurological deficit, tremors, seizure like activity, confusion, dizziness, change in mental status, loss of bowel or bladder function, cauda equina like symptoms. : Denies acute: dysuria, hematuria, flank pain, increase in urinary frequency. PSYCH: Denies acute: hallucination, suicidal ideation, homicidal ideation. PHYSICAL EXAM: General: --mod------acute distress, awake and alert. Head: normocephalic, atraumatic. No raccoon's eyes, no gould sign. Neck: supple, trachea is midline, no swelling. Palpable submandibular lymphadenopathy. Throat: Normal phonation. Apparent bilateral exudates and erythema and swelling in the back of the throat. Patient is protecting his airway. No obstruction. No drooling. Eyes:, no erythema, no purulent discharge, no proptosis, no icterus. Heart: regular tachycardia, no significant murmur appreciated. Lungs: no apparent respiratory distress, Able to speak in full sentences. No wheezing, no rhonchi, no crackles. No stridors Clear to auscultation bilaterally. Abdomen: non tender to palpation, non distended, soft, no guarding, no rebound, + bowel sounds. Neuro: Awake, Alert, oriented to name, self, situation, follows commands GCS=15. Speech is normal. Skin: no petechia, no purpura, no cyanosis, non-pale, not jaundice. Lower extremities: --no - Pitting edema no deformity, no focal swelling, no calf TTP. Makes eye contact. moves all four extremities. Face: no apparent facial droop. Ambulating in the ED independently. No nuchal rigidity, Kernig's sign, Brudzinski's sign, no meningeal signs. ED COURSE: DISCLAIMER: This medical document was created using an electronic medical record system with voice recognition software and computerized dictation system. Although this document has been carefully reviewed, there might still be some phonetic and typographical errors. Occasional wrong-word or "sound-alike" substitutions may have occurred due to the inherent limitations of voice recognition software. These areas are purely typographical due to imperfections of the software programs and do not reflect any compromise in the patient's medical care. Please read the chart carefully and recognize, using context, where these substitutions have occurred. Chief Complaint: Sore Throat Time Seen by MD: 17:40 Primary Care Provider: BRANDO Crenshaw Notes: Medications, Allergies Allergies: Coded Allergies: NO KNOWN ALLERGIES (Unverified , 03/16/10) Home Meds Active Scripts Ibuprofen (Ibuprofen) 600 Mg Tab, 1 TAB PO QID, #30 TAB Prov:BRIANNA FUNG 08/15/25 Azithromycin (Azithromycin) 500 Mg Tab, 1 TAB PO DAILY, #5 TAB Prov:BRIANNA FUNG 08/15/25 Metoprolol Tartrate (Lopressor) 25 Mg Tb, 25 MG PO BID for 90 Days, #180 TAB Prov:SHAUNA HASTINGS MD 03/26/25 Aspirin (Aspirin Low Dose) 81 Mg Tab, 81 MG PO DAILY for 30 Days, #30 TAB 1 Refill Prov:SHAUNA HASTINGS MD 03/26/25 Information Source: Patient Mode of Arrival: EMS Timing: Days Duration: Since onset Past Medical History PAST MEDICAL HISTORY: AFIB, HTN Surgical History: Denies all surgeries Family History Family History: Reviewed,noncontributory to illness Social History Smoker: Non-Smoker Alcohol: Denies ETOH Use Drugs: Denies Drug Use Lives In: Home Was a procedure done? Was a procedure done?: No EENT DIFF Eye: N/A Sore Throat: Peritonsillar Abscess, Peritonsillar Cellulitis X-Ray, Labs, Meds, VS Vital Signs Date Time Temp Pulse Resp B/P (MAP) Pulse Ox O2 Delivery O2 Flow Rate FiO2 08/18/25 20:28 112 18 96 Room Air* 0 21 08/18/25 19:30 98.1 112 18 122/72 (89) 96 98.1 08/18/25 17:23 133 08/18/25 17:23 101.5 126 22 141/106 98 101.5 Lab Test 08/18/25 20:25 08/18/25 18:07 Range/Units Lactic Acid Level 1.1 2.3 *H 0.4-2.0 mmol/L White Blood Count 12.3 H 4.4-10.8 10^3/uL Red Blood Count 5.82 4.5-5.90 10^6/uL Hemoglobin 17.3 13.5-17.5 g/dL Hematocrit 50.0 41.0-53.0 % Mean Corpuscular Volume 85.9 80.0-100.0 fL Mean Corpuscular Hemoglobin 29.8 28.0-32.0 pg Mean Corpuscular Hemoglobin Concent 34.6 32.0-36.0 g/dL Red Cell Distribution Width 13.9 11.8-14.3 % Platelet Count 203 140-450 10^3/uL Mean Platelet Volume 8.3 6.9-10.8 fL Neutrophils (%) (Auto) 77.1 37.0-80.0 % Lymphocytes (%) (Auto) 11.2 10.0-50.0 % Monocytes (%) (Auto) 11.3 0.0-12.0 % Eosinophils (%) (Auto) 0.1 0.0-7.0 % Basophils (%) (Auto) 0.3 0.0-2.0 % Neutrophils # (Auto) 9.5 H 1.6-8.6 10 ^3/uL Lymphocytes # (Auto) 1.4 0.4-5.4 10 ^3/uL Monocytes # (Auto) 1.4 H 0-1.3 10 ^3/uL Eosinophils # (Auto) 0 0-0.8 10 ^3/uL Basophils # (Auto) 0 0-0.2 10 ^3/uL Nucleated Red Blood Cells 0.0 % Prothrombin Time 12.0 H 9.3-11.8 sec Prothrombin Time INR 1.15 0.9-1.15 Activated Partial Thromboplast Time 28.5 24.5-34.5 SEC Sodium Level 139 136-145 mmol/L Potassium Level 3.5 3.5-5.1 mmol/L Chloride Level 103 98-107 mmol/L Carbon Dioxide Level 27 20-31 mmol/L Anion Gap 9 5-15 Blood Urea Nitrogen 6 L 9-23 mg/dL Creatinine 1.23 0.700-1.30 mg/dL Glomerular Filtration Rate Calc 85 >90 mL/min BUN/Creatinine Ratio 4.9 L 10.0-20.0 Serum Glucose 91 74-106 mg/dL Calcium Level 9.2 8.7-10.4 mg/dL Total Bilirubin 0.8 0.2-1.0 mg/dL Aspartate Amino Transferase (AST) 22 13-40 U/L Alanine Aminotransferase (ALT) 32 7-40 U/L Alkaline Phosphatase 57 46-116 U/L Total Protein 7.7 5.7-8.2 g/dL Albumin 4.8 3.2-4.8 g/dL Monoscreen Negative Current Medications Medications (Trade) Dose Ordered Sig/Cecile Route Start Time Stop Time Status Last Admin Lactated Ringer's 2,350 ml @ 2,350 mls/hr ONCE ONCE IV 08/18/25 17:45 08/18/25 18:44 DC 08/18/25 19:13 Vancomycin HCl 250 ml @ 250 mls/hr ONCE ONCE IV 08/18/25 17:45 08/18/25 18:44 DC 08/18/25 19:56 Cefepime HCl 50 ml @ 12.5 mls/hr ONCE ONCE IV 08/18/25 17:45 08/18/25 21:44 DC 08/18/25 21:36 Dexamethasone Sodium Phosphate (Decadron Injection) 20 mg ONCE ONCE IV 08/18/25 17:45 08/18/25 17:48 DC 08/18/25 18:56 Acetaminophen (Ofirmev) 1,000 mg ONCE ONCE IV 08/18/25 18:00 08/18/25 18:01 DC 08/18/25 19:05 [place] [address] Ph: [phone] DIAGNOSTIC IMAGING Diagnostic Imaging Report : [id number] Signed PATIENT: ANSELMO PAREDES ACCT: [id number] UNIT: [id number] : 2005 LOC: ER ROOM / BED: / AGE / SEX: 20 / M ADM STATUS: REG ER SERVICE 44 ORDERING PHYSICIAN: DOMI ZAMUDIO DO PROCEDURE(s): CXRP - CHEST PORTABLE REASON: fever ORDER NUMBER(s): [id number], ACCESSION NUMBER(s): [id number] CHEST RADIOGRAPH INDICATION: fever TECHNIQUE: Single frontal view of the chest was obtained COMPARISON: XY CHEST PORTABLE on DOS: 03/23/25 FINDINGS: Lines and Tubes: None Lungs: No focal consolidation. No pulmonary consolidations. Pleura: No effusion. No pneumothorax. Cardiomediastinal contours: Unremarkable Bones: No acute osseous abnormality. IMPRESSION: 1. No acute cardiopulmonary disease. ATED BY: LOS DEL VALLE Jr., DO DICTATED DATE/TIME: 08/18/251906 SIGNED BY: LOS DEL VALLE Jr., DO SIGNED DATE/TIME: 08/18/251906 CC: [address] [address] Ph: [phone] DIAGNOSTIC IMAGING Diagnostic Imaging Report : [id number] Signed PATIENT: ANSELMO PAREDES ACCT: [id number] UNIT: [id number] : 2005 LOC: ER ROOM / BED: / AGE / SEX: 20 / M ADM STATUS: REG ER SERVICE 44 ORDERING PHYSICIAN: DOMI ZAMUDIO DO PROCEDURE(s): NK2CT - NECK WITH CONTRAST SOFT REASON: sore throat, rule out abscess versus other etiologies ORDER NUMBER(s): [id number], ACCESSION NUMBER(s): [id number] EXAM: CT NECK WITH CONTRAST SOFT INDICATION: sore throat, rule out abscess versus other etiologies Exam Date: 08/18/2025 08:06 PM COMPARISON: None TECHNIQUE: CT of the neck with intravenous contrast. RADIATION DOSE: CTDIvol: 23.12 mGy, DLP: 779.76 mGy*cm CONTRAST: Type of contrast: Omnipaque 350 Contrast injected: 100 ml FINDINGS: Few prominent lymph nodes along both cervical chains measuring up to 3.1 cm in the left level 2A neck. The fat planes of the neck appear intact. The airway and larynx are unremarkable. The parotid, submandibular and thyroid glands are unremarkable. The vascular structures of the neck appear patent. The visualized lung apices are clear. The limited visualized portions of the brain are unremarkable. The osseous structures are unremarkable. IMPRESSION: No evidence for an abscess. Multiple enlarged bilateral cervical chain lymph nodes, likely reactive. ATED BY: MERLYN FLYNN MD DICTATED DATE/TIME: 08/18/252045 SIGNED BY: MERLYN FLYNN MD SIGNED DATE/TIME: 08/18/252045 CC: Time of 1ST Reevaluation: 17:47 Reevaluation 1ST: Unchanged Patient Education/Counseling: Diagnosis, Treatment Family Education/Counseling: No Family Present Departure 1 Departure Time of Disposition: 21:01 Impression: Primary Impression: Fever Additional Impressions: Tonsillitis Sore throat Sepsis Leukocytosis Disposition: ADMITTED INPATIENT Admit to: [facility] Condition: Guarded Discharged With: Self Critical Care Note Critical Care Time?: Yes I personally scribed for ODMI ZAMUDIO DO ([email or web address]) on 08/18/25 at 17:55. Electronically submitted by Denise Livingston ([facility]). I personally scribed for DOMI ZAMUDIO DO ([email or web address]) on 08/18/25 at 22:28. Electronically submitted by Denise Livingston ([facility]). DOMI ZAMUDIO DO Aug 18, 2025 17:55
[2025-08-18 18:39] LABS: Hematocrit 50.0 % (41.0-53.0); Hemoglobin 17.3 g/dL (13.5-17.5); Mean Corpuscular Hemoglobin 29.8 pg (28.0-32.0); Mean Corpuscular Volume 85.9 fL (80.0-100.0); Nucleated Red Blood Cells % 0.0 %
[2025-08-18 18:54] LABS: INR 1.15 (0.9-1.15); Partial Thromboplastin Time 28.5 SEC (24.5-34.5); Prothrombin Time 12.0 sec (9.3-11.8)
[2025-08-18 18:55] LABS: Alanine Aminotransferase 32 U/L (7-40); Albumin 4.8 g/dL (3.2-4.8); Alkaline Phosphatase 57 U/L (46-116); Anion Gap 9 (5-15); BUN/Creatinine Ratio 4.9 (10.0-20.0); Bilirubin, Total 0.8 mg/dL (0.2-1.0); Calcium 9.2 mg/dL (8.7-10.4); Carbon Dioxide 27 mmol/L (20-31); Chloride 103 mmol/L (98-107); Glucose 91 mg/dL (74-106); Potassium 3.5 mmol/L (3.5-5.1); Sodium 139 mmol/L (136-145); Total Protein 7.7 g/dL (5.7-8.2)
[2025-08-18] MEDS: ACETAMINOPHEN IV 1000 MG/100ML (10MG/ML) IV ONE ×2 (19:05→21:14)
--- NOTE | 2025-08-18 19:09 | DVH ---
CHEST RADIOGRAPH INDICATION: fever TECHNIQUE: Single frontal view of the chest was obtained COMPARISON: XY CHEST PORTABLE on DOS: 03/23/25 FINDINGS: Lines and Tubes: None Lungs: No focal consolidation. No pulmonary consolidations. Pleura: No effusion. No pneumothorax. Cardiomediastinal contours: Unremarkable Bones: No acute osseous abnormality. IMPRESSION: 1. No acute cardiopulmonary disease.
[2025-08-18] MEDS: LACTATED RINGER'S 2,350 ML IV ONE (19:13)
[2025-08-18 19:26] LABS: Blood Urea Nitrogen 6 mg/dL (9-23)
[2025-08-18 19:36] LABS: Lactic Acid w/Reflex 2.3 mmol/L (0.4-2.0)
[2025-08-18] MEDS: VANCOMYCIN 1GM/250ML KIT 250 ML IV ONE (19:56)
[2025-08-18 20:28] VITALS: PULSE 112; RESP 18; O2SAT 96
[2025-08-18] MEDS: IOHEXOL 300 MG/ML 100ML BOTTLE IJ ONE (20:45)
--- NOTE | 2025-08-18 20:49 | DVH ---
EXAM: CT NECK WITH CONTRAST SOFT INDICATION: sore throat, rule out abscess versus other etiologies Exam Date: 08/18/2025 08:06 PM COMPARISON: None TECHNIQUE: CT of the neck with intravenous contrast. RADIATION DOSE: CTDIvol: 23.12 mGy, DLP: 779.76 mGy*cm CONTRAST: Type of contrast: Omnipaque 350 Contrast injected: 100 ml FINDINGS: Few prominent lymph nodes along both cervical chains measuring up to 3.1 cm in the left level 2A neck. The fat planes of the neck appear intact. The airway and larynx are unremarkable. The parotid, submandibular and thyroid glands are unremarkable. The vascular structures of the neck appear patent. The visualized lung apices are clear. The limited visualized portions of the brain are unremarkable. The osseous structures are unremarkable. IMPRESSION: No evidence for an abscess. Multiple enlarged bilateral cervical chain lymph nodes, likely reactive.
[2025-08-18] MEDS: CEFEPIME 1GM/50ML 50 ML IV ONE (21:36)
[2025-08-18] MEDS: SODIUM CHLORIDE 0.9% 1,000 ML IV ONE (22:50)
[2025-08-18 23:21] LABS: Rapid Strep A Screen-Throat Negative
[2025-08-19] VITALS (9 sets, daily range): BP systolic 115–143; BP diastolic 73–88; PULSE 82–102; RESP 15–20; TEMP 97.3–98.3; O2SAT 96–99
--- NOTE | 2025-08-19 00:48 | DVHHP2 ---
History of Present Illness History of Present Illness 20-year-old male with past medical history of paroxysmal atrial fibrillation and hypertension who presented with worsening throat pain and difficulty swallowing. Patient was seen by his PCP three days prior and diagnosed with acute tonsillitis; however, symptoms have progressively worsened despite outpatient management. He reports significant odynophagia and mild shortness of breath but is able to maintain his airway and is tolerating secretions. He endorses recurrent tonsillitis with this being his second episode this year. No documented fevers. In the ED, he was noted to be tachycardic and mildly hypertensive. Initial labs showed leukocytosis and mildly elevated lactate, which improved with IV fluids. CT neck was obtained and ruled out peritonsillar or retropharyngeal abscess, showing bilateral tonsillar enlargement with reactive cervical lymphadenopathy. He was started on IV antibiotics and admitted for further management due to severity of symptoms and poor oral intake. PMHx: Paroxysmal atrial fibrillation, hypertension, recurrent tonsillitis PSHx: None Medications: Metoprolol, aspirin Allergies: No known drug allergies Social History: Lives with mother, denies tobacco use, alcohol use unclear but denies heavy use, denies illicit drug use ROS: Negative except as per HPI Review of Systems Allergies: Coded Allergies: NO KNOWN ALLERGIES (Unverified , 03/16/10) Medications Current Medications Medications Dose Ordered Sig/Cecile Route Start Time Stop Time Status Last Admin Dose Admin Ceftriaxone Sodium 50 ml @ 100 mls/hr DAILY@09 IV 08/19/25 09:00 Exam Vital Signs Vital Signs Date Time Temp Pulse Resp B/P (MAP) Pulse Ox O2 Delivery O2 Flow Rate FiO2 08/19/25 00:01 97.9 89 18 125/75 (92) 96 97.9 08/18/25 20:28 Room Air* 0 21 Exam General: Alert, uncomfortable but in no acute distress HEENT: Markedly enlarged bilateral tonsils with significant exudates, no uvular deviation, no drooling Neck: Bilateral tender cervical lymphadenopathy, no fluctuance Cardiovascular: Tachycardic, regular rhythm Respiratory: Clear to auscultation bilaterally, no stridor, no increased work of breathing Abdomen: Soft, non-tender, non-distended Neurologic: Alert and oriented, no focal deficits Labs/Xrays Labs Test 08/18/25 23:00 08/18/25 20:25 08/18/25 18:07 Range/Units Group A Streptococcus Rapid Negative Lactic Acid Level 1.1 0.4-2.0 mmol/L White Blood Count 12.3 H 4.4-10.8 10^3/uL Red Blood Count 5.82 4.5-5.90 10^6/uL Hemoglobin 17.3 13.5-17.5 g/dL Hematocrit 50.0 41.0-53.0 % Mean Corpuscular Volume 85.9 80.0-100.0 fL Mean Corpuscular Hemoglobin 29.8 28.0-32.0 pg Mean Corpuscular Hemoglobin Concent 34.6 32.0-36.0 g/dL Red Cell Distribution Width 13.9 11.8-14.3 % Platelet Count 203 140-450 10^3/uL Mean Platelet Volume 8.3 6.9-10.8 fL Neutrophils (%) (Auto) 77.1 37.0-80.0 % Lymphocytes (%) (Auto) 11.2 10.0-50.0 % Monocytes (%) (Auto) 11.3 0.0-12.0 % Eosinophils (%) (Auto) 0.1 0.0-7.0 % Basophils (%) (Auto) 0.3 0.0-2.0 % Neutrophils # (Auto) 9.5 H 1.6-8.6 10 ^3/uL Lymphocytes # (Auto) 1.4 0.4-5.4 10 ^3/uL Monocytes # (Auto) 1.4 H 0-1.3 10 ^3/uL Eosinophils # (Auto) 0 0-0.8 10 ^3/uL Basophils # (Auto) 0 0-0.2 10 ^3/uL Nucleated Red Blood Cells 0.0 % Prothrombin Time 12.0 H 9.3-11.8 sec Prothrombin Time INR 1.15 0.9-1.15 Activated Partial Thromboplast Time 28.5 24.5-34.5 SEC Sodium Level 139 136-145 mmol/L Potassium Level 3.5 3.5-5.1 mmol/L Chloride Level 103 98-107 mmol/L Carbon Dioxide Level 27 20-31 mmol/L Anion Gap 9 5-15 Blood Urea Nitrogen 6 L 9-23 mg/dL Creatinine 1.23 0.700-1.30 mg/dL Glomerular Filtration Rate Calc 85 >90 mL/min BUN/Creatinine Ratio 4.9 L 10.0-20.0 Serum Glucose 91 74-106 mg/dL Calcium Level 9.2 8.7-10.4 mg/dL Total Bilirubin 0.8 0.2-1.0 mg/dL Aspartate Amino Transferase (AST) 22 13-40 U/L Alanine Aminotransferase (ALT) 32 7-40 U/L Alkaline Phosphatase 57 46-116 U/L Total Protein 7.7 5.7-8.2 g/dL Albumin 4.8 3.2-4.8 g/dL Monoscreen Negative SEPSIS Sepsis Screen Date sepsis recognized/suspect: Aug 18, 2025 Time Sepsis recognized/suspect: 2027 Recent Procedure: No On Antibiotic Therapy: Yes Respiratory Rate >20: No Heart Rate >90: Yes Temp<36 C (96.8 F) or >38.3 C: No SBP <90 or MAP <65 mmHG: No New Acute Mental Status Change: No Is the patient on CPAP, BIPAP,: No Physician Orders Urinalysis (08/18/25 17:45) Chest Portable (08/18/25 17:45) Accucheck (08/18/25 17:45) Blood Culture (08/18/25 17:45) Notify Md If Map <65 Or Bp<90 (08/18/25 17:45) If Map<65 Start Vasopressor (08/18/25 17:45) Sepsis Reassesment After Fluid (08/18/25 18:45) Neck With Contrast Soft (08/18/25 17:45) Ceftriaxone 1gm/50ml (Rocephin) (08/19/25 09:00) Admit (08/18/25 22:39) Oxygen By Nasal Cannula (08/18/25 22:39) Stat Ekg For Chest Pain (08/18/25 22:39) Notify Md Of Changes From Base (08/18/25 22:39) Compress Machine Operator For 24 Hours (08/18/25 22:39) Emergency Dysrhythmia Protocol (08/18/25 22:39) Rhythm Strips Once Every Shift (08/18/25 22:39) Sodium Chloride 0.9% (08/18/25 22:45) Clear Liq Diet (08/19/25 Breakfast) Vital Signs Date Time Temp Pulse Resp B/P (MAP) Pulse Ox O2 Delivery O2 Flow Rate FiO2 08/19/25 00:01 97.9 89 18 125/75 (92) 96 97.9 08/18/25 22:00 98.0 96 18 118/78 (91) 96 98.0 08/18/25 20:28 112 18 96 Room Air* 0 21 08/18/25 19:30 98.1 112 18 122/72 (89) 96 98.1 08/18/25 17:23 133 08/18/25 17:23 101.5 126 22 141/106 98 101.5 Laboratory Tests Test 08/18/25 18:07 08/18/25 20:25 Lactic Acid Level 2.3 mmol/L (0.4-2.0) *H 1.1 mmol/L (0.4-2.0) White Blood Count 12.3 10^3/uL (4.4-10.8) H Medications Medications Dose Ordered Sig/Cecile Route Start Time Stop Time Status Last Admin Dose Admin Acetaminophen 1,000 mg ONCE ONCE IV 08/18/25 18:00 08/18/25 18:01 DC 08/18/25 19:05 1,000 MG Cefepime HCl 50 ml @ 12.5 mls/hr ONCE ONCE IV 08/18/25 17:45 08/18/25 21:44 DC 08/18/25 21:36 12.5 MLS/HR Dexamethasone Sodium Phosphate 20 mg ONCE ONCE IV 08/18/25 17:45 08/18/25 17:48 DC 08/18/25 18:56 20 MG Lactated Ringer's 2,350 ml @ 2,350 mls/hr ONCE ONCE IV 08/18/25 17:45 08/18/25 18:44 DC 08/18/25 19:13 2,350 MLS/HR Sodium Chloride 1,000 ml @ 150 mls/hr Q6H40M ONCE IV 08/18/25 22:45 08/19/25 05:24 08/18/25 22:50 150 MLS/HR Vancomycin HCl 250 ml @ 250 mls/hr ONCE ONCE IV 08/18/25 17:45 08/18/25 18:44 DC 08/18/25 19:56 250 MLS/HR Assessment/Plan Assessment/Plan Sepsis due to Acute bacterial tonsillitis Admitted due to recurrent severe tonsillitis with odynophagia and inability to tolerate oral intake, leukocytosis, and imaging ruling out abscess. Continue IV ceftriaxone, discontinue vancomycin given lack of abscess or MRSA risk, maintain IV fluids, advance diet as tolerated, monitor airway status closely, consider transition to oral antibiotics once PO improves Recurrent tonsillitis Second episode this year; recommend outpatient ENT referral after discharge for evaluation for possible tonsillectomy given recurrence Paroxysmal atrial fibrillation Hold on home metoprolol and aspirin Hypertension Mild elevation likely stress-related, monitor blood pressure Dehydration Secondary to poor oral intake; continue IV fluids and reassess lactate and volume status Case discussed with Dr William Full code Plan discussed with: Patient, Other (rn) My Orders Orders - FOUZIA ZUÑIGA Procedure Category Date Status Time Ceftriaxone 1gm/50ml PHA 08/19/25 In Process (Rocephin) 09:00 Admit ADMIT 08/18/25 Transmitted 22:39 Oxygen By Nasal RT 08/18/25 Transmitted Cannula 22:39 Stat Ekg For Chest JESSICA 08/18/25 In Process Pain 22:39 Notify Md Of Changes JESSICA 08/18/25 In Process From Base 22:39 Compress Machine Operator For JESSICA 08/18/25 In Process 24 Hours 22:39 Emergency Dysrhythmia JESSICA 08/18/25 In Process Protocol 22:39 Rhythm Strips Once JESSICA 08/18/25 In Process Every Shift 22:39 Sodium Chloride 0.9% PHA 08/18/25 In Process 22:45 Clear Liq Diet DIET 08/19/25 Transmitted Breakfast Date of Service: Aug 18, 2025 Billing Provider: BAILEY WILLIAM MD Common Visit Codes: [id number] INP/OBS CARE (HIGH) Secondary Visit Codes: [id number] CARE PLAN 30 MINUTES FOUZIA ZUÑIGA Aug 19, 2025 00:48
[2025-08-19 06:04] LABS: Hematocrit 48.5 % (41.0-53.0); Hemoglobin 16.6 g/dL (13.5-17.5); Mean Corpuscular Hemoglobin 29.2 pg (28.0-32.0); Mean Corpuscular Volume 85.3 fL (80.0-100.0); Nucleated Red Blood Cells % 0.0 %
[2025-08-19 06:20] LABS: Alanine Aminotransferase 27 U/L (7-40); Albumin 4.4 g/dL (3.2-4.8); Alkaline Phosphatase 52 U/L (46-116); BUN/Creatinine Ratio 5.2 (10.0-20.0); Calcium 9.0 mg/dL (8.7-10.4); Carbon Dioxide 25 mmol/L (20-31); Total Protein 7.1 g/dL (5.7-8.2)
[2025-08-19 06:21] LABS: Bilirubin, Total 0.4 mg/dL (0.2-1.0)
[2025-08-19 06:26] LABS: Blood Urea Nitrogen 5 mg/dL (9-23); Glucose 129 mg/dL (74-106)
[2025-08-19 06:42] LABS: Anion Gap 10 (5-15); Chloride 107 mmol/L (98-107); Potassium 4.3 mmol/L (3.5-5.1); Sodium 142 mmol/L (136-145)
--- NOTE | 2025-08-19 12:43 | DVHPN2 ---
Reviewed: Care Plan, H&P, Labs, Medications, Previous Orders, Radiology Changes from previous H/P or p: No Changes Objective Vitals Vital Signs Date Time Temp Pulse Resp B/P (MAP) Pulse Ox O2 Delivery O2 Flow Rate FiO2 08/19/25 09:00 98.3 102 16 137/80 (99) 98 98.3 08/19/25 08:00 Room Air* 0 21 Intake/Output Intake and Output 08/19/25 07:00 Intake Total 2825.0 ml Balance 2825.0 ml Intake Oral 50 ml IV Total 2775.0 ml # Voids 1 Medications Current Medications Medications Dose Ordered Sig/Cecile Route Start Time Stop Time Status Last Admin Dose Admin Ceftriaxone Sodium 50 ml @ 100 mls/hr DAILY@09 IV 08/19/25 09:00 08/19/25 08:42 100 MLS/HR Laboratory Results Laboratory Tests 08/19/25 04:35 Chemistry Test 08/18/25 18:07 08/19/25 04:35 Albumin 4.8 g/dL (3.2-4.8) 4.4 g/dL (3.2-4.8) Calcium Level 9.2 mg/dL (8.7-10.4) 9.0 mg/dL (8.7-10.4) Total Protein 7.7 g/dL (5.7-8.2) 7.1 g/dL (5.7-8.2) Coagulation Test 08/18/25 18:07 Prothrombin Time 12.0 sec (9.3-11.8) H Prothrombin Time INR 1.15 (0.9-1.15) Activated Partial Thromboplast Time 28.5 SEC (24.5-34.5) LFT Test 08/18/25 18:07 08/19/25 04:35 Alanine Aminotransferase (ALT) 32 U/L (7-40) 27 U/L (7-40) Alkaline Phosphatase 57 U/L (46-116) 52 U/L (46-116) Aspartate Amino Transferase (AST) 22 U/L (13-40) 18 U/L (13-40) Total Bilirubin 0.8 mg/dL (0.2-1.0) 0.4 mg/dL (0.2-1.0) Labs and/or images reviewed: Labs reviewed by me, Image(s) reviewed by me Assessment/Plan Assessment/Plan Sepsis due to Acute bacterial tonsillitis: Blood cultures, Rocephin Recurrent tonsillitis Hypertension History of AFib Acute dehydration: IV fluids Throat cultures for group A strep negative Mononucleosis negative Blood cultures pending Plan discussed with: Patient Date of Service: Aug 19, 2025 Billing Provider: JASSI BOLAND MD Common Visit Codes: [id number] INP/OBS CARE(HIGH) JASSI BOLAND MD Aug 19, 2025 12:43
[2025-08-19] MEDS: SODIUM CHLORIDE 0.9% 1,000 ML IV SCH (14:00)
[2025-08-20] MEDS: HYDROcodone-ACET 5/325MG TAB PO PRN (03:25)
[2025-08-20 05:00] VITALS: BP 136/79; PULSE 79; RESP 15; TEMP 98.3; O2SAT 94
[2025-08-20 09:00] VITALS: BP 132/80; PULSE 87; RESP 18; TEMP 97.7; O2SAT 97
[2025-08-20 10:20] LABS: Hepatitis B Surface Antigen Negative (Negative); Hepatitis C Antibody Negative (Negative)
[2025-08-20] MEDS ORDERED: AUG875T PO (12:01)
--- NOTE | 2025-08-20 12:03 | DVHPN2 ---
Reviewed: Care Plan, H&P, Labs, Medications, Previous Orders, Radiology Changes from previous H/P or p: No Changes Objective Vitals Vital Signs Date Time Temp Pulse Resp B/P (MAP) Pulse Ox O2 Delivery O2 Flow Rate FiO2 08/20/25 09:00 97.7 87 18 132/80 (97) 97 97.7 08/20/25 08:00 Room Air* 0 21 Intake/Output Intake and Output 08/20/25 07:00 Intake Total 1330 ml Balance 1330 ml Intake Oral 1280 ml IV Total 50 ml # Voids 6 Medications Current Medications Medications Dose Ordered Sig/Cecile Route Start Time Stop Time Status Last Admin Dose Admin Ceftriaxone Sodium 50 ml @ 100 mls/hr DAILY@09 IV 08/19/25 09:00 08/20/25 08:21 100 MLS/HR Sodium Chloride 1,000 ml @ 150 mls/hr Q6H40M IV 08/19/25 14:00 08/20/25 10:00 150 MLS/HR Acetaminophen/ Hydrocodone Bitart 1 tab Q6HPRN PRN PO 08/20/25 03:15 08/20/25 09:33 1 TAB Laboratory Results Laboratory Tests 08/19/25 04:35 Microbiology Microbiology Date/Time Source Procedure Growth Status 08/18/25 23:00 Throat Nose/Throat Culture - Preliminary Resulted 08/18/25 18:07 Blood Blood Culture - Preliminary NO GROWTH AFTER 24 HOURS OF INCUBATION. Resulted Labs and/or images reviewed: Labs reviewed by me, Image(s) reviewed by me Assessment/Plan Assessment/Plan Sepsis due to Acute bacterial tonsillitis: Blood cultures, Rocephin Recurrent tonsillitis Hypertension History of AFib Acute dehydration: IV fluids Throat cultures for group A strep negative Mononucleosis negative Blood cultures negative Feels better eating and wants to go home Plan discussed with: Patient My Orders Orders - JASSI BOLAND MD Procedure Category Date Status Time Sodium Chloride 0.9% PHA 08/19/25 In Process 14:00 Date of Service: Aug 20, 2025 Billing Provider: JASSI BOLAND MD Common Visit Codes: [id number] INP/OBS CARE(HIGH) JASSI BOLAND MD Aug 20, 2025 12:03
--- NOTE | 2025-08-20 12:07 | DVHDS2 ---
Discharge Summary Date of Admission Aug 18, 2025 at 22:39 Date of Discharge: Aug 20, 2025 Admitting Diagnosis Sepsis secondary to tonsillitis Wounds: None Labs/Diagnostic Data: Laboratory Results Test 08/19/25 04:35 08/18/25 23:00 08/18/25 20:25 08/18/25 18:07 White Blood Count 8.7 10^3/uL (4.4-10.8) Red Blood Count 5.69 10^6/uL (4.5-5.90) Hemoglobin 16.6 g/dL (13.5-17.5) Hematocrit 48.5 % (41.0-53.0) Mean Corpuscular Volume 85.3 fL (80.0-100.0) Mean Corpuscular Hemoglobin 29.2 pg (28.0-32.0) Mean Corpuscular Hemoglobin Concent 34.2 g/dL (32.0-36.0) Red Cell Distribution Width 13.8 % (11.8-14.3) Platelet Count 194 10^3/uL (140-450) Mean Platelet Volume 8.4 fL (6.9-10.8) Neutrophils (%) (Auto) 85.6 % (37.0-80.0) Lymphocytes (%) (Auto) 9.0 % (10.0-50.0) Monocytes (%) (Auto) 5.3 % (0.0-12.0) Eosinophils (%) (Auto) 0.0 % (0.0-7.0) Basophils (%) (Auto) 0.1 % (0.0-2.0) Neutrophils # (Auto) 7.4 10 ^3/uL (1.6-8.6) Lymphocytes # (Auto) 0.8 10 ^3/uL (0.4-5.4) Monocytes # (Auto) 0.5 10 ^3/uL (0-1.3) Eosinophils # (Auto) 0 10 ^3/uL (0-0.8) Basophils # (Auto) 0 10 ^3/uL (0-0.2) Nucleated Red Blood Cells 0.0 % Sodium Level 142 mmol/L (136-145) Potassium Level 4.3 mmol/L (3.5-5.1) Chloride Level 107 mmol/L (98-107) Carbon Dioxide Level 25 mmol/L (20-31) Anion Gap 10 (5-15) Blood Urea Nitrogen 5 mg/dL (9-23) Creatinine 0.97 mg/dL (0.700-1.30) Glomerular Filtration Rate Calc 113 mL/min (>90) BUN/Creatinine Ratio 5.2 (10.0-20.0) Serum Glucose 129 mg/dL (74-106) Calcium Level 9.0 mg/dL (8.7-10.4) Total Bilirubin 0.4 mg/dL (0.2-1.0) Aspartate Amino Transferase (AST) 18 U/L (13-40) Alanine Aminotransferase (ALT) 27 U/L (7-40) Alkaline Phosphatase 52 U/L (46-116) Total Protein 7.1 g/dL (5.7-8.2) Albumin 4.4 g/dL (3.2-4.8) Hepatitis B Surface Antigen Negative (Negative) Hepatitis C Antibody Negative (Negative) Group A Streptococcus Rapid Negative Lactic Acid Level 1.1 mmol/L (0.4-2.0) Prothrombin Time 12.0 sec (9.3-11.8) Prothrombin Time INR 1.15 (0.9-1.15) Activated Partial Thromboplast Time 28.5 SEC (24.5-34.5) Monoscreen Negative Other Laboratory Tests 08/19/25 04:35 Brief Hx & Hospital Course: Year-old male with a history of hypotension AFib recurrent tonsillitis admitted for sepsis secondary to acute bacterial tonsillitis. Blood cultures negative treated with Rocephin. Mononucleosis negative group a strep negative dehydration resolved with the IV fluids patient feels better able to eat without any difficulty requesting to be discharged home discharged home on Augmentin he will follow up with the his primary Dr. Consults/Reason for consult None Operations or Procedures None Condition at Discharge: Fair Final Diagnosis/Problems List Sepsis due to Acute bacterial tonsillitis: Blood cultures, Rocephin Recurrent tonsillitis Hypertension History of AFib Acute dehydration: IV fluids Throat cultures for group A strep negative Mononucleosis negative Blood cultures negative Discharge Disposition: Home Discharge Instruct/Medications Diet: Regular Activity: Light activity Follow Up/Referral: Use Medications as prescribed Follow up with your primary Dr Medications: Augmentin Transmitted to [facility] Scheduled Amoxicillin & Pot Clavulanate (Augmentin Tablet), 875 MG PO BID Aspirin (Aspirin Low Dose), 81 MG PO DAILY Azithromycin (Azithromycin), 1 TAB PO DAILY Ibuprofen (Ibuprofen), 1 TAB PO QID Metoprolol Tartrate (Lopressor), 25 MG PO BID 36 (Time taken for discharge summary 36 minutes) Discharge Statement: "Patient was advised to return to the ER or call 911 if any headaches, dizziness, shortness of breath, chest pain, abdominal pain, bleeding, fevers, or worsening of medical condition. Patient was counseled about treatment plan, medications, possible side effects, patientverbalized understanding. All questions were answered to the best of my ability. This discharge took greater then 30 minutes in planning, reviewing documentation, counseling the patient, and discussing with other team members." ASSESSMENT ASSESSMENT Hospital Course Improved Assessment Sepsis due to Acute bacterial tonsillitis: Blood cultures, Rocephin Recurrent tonsillitis Hypertension History of AFib Acute dehydration: IV fluids Throat cultures for group A strep negative Mononucleosis negative Blood cultures negative Date of Service: Aug 20, 2025 Billing Provider: JASSI BOLAND MD Common Visit Codes: 13387-PHO/OBS DISCH DAY >30min JASSI BOLAND MD Aug 20, 2025 12:07
== END 2025-08-20 14:06 | disposition home or self-care (01) | DRG 720 ==
LOC: ER 17:18 → EDBD 17:18 → EDSEX 17:18 → EDUNIT# 17:18 → OVERFLOW 22:39 → WEST WING 22:42
PROVIDERS: ADMIT Family Medicine; ATTEND Family Medicine
DX: A41.9 Sepsis, unspecified organism (principal); R13.10 Dysphagia, unspecified; E86.0 Dehydration; I48.0 Paroxysmal atrial fibrillation; I10 Essential (primary) hypertension; J03.81 Acute recurrent tonsillitis due to other specified organisms; Z79.899 Other long term (current) drug therapy
CPT/HCPCS: 36415; 70491; 71045; 80053; 83605; 85025; 85610; 85730; 86308; 86803; 87040; 87070; 87340; 87880; 93005; G0378; J0131; J1100